=== PATIENT | male | born 1985 | race Caucasian/White ===

== ENCOUNTER 2022-07-14 16:57 | Emergency (ER) | payer OTHER, SELFPAY ==
[2022-07-14] VITALS (38 sets, daily range): BP systolic 91–158; BP diastolic 67–104; PULSE 105–135; RESP 20; TEMP 36.5–36.6; O2SAT 70–100
--- NOTE | ~2022-07-14 | XR_ITS ---
XR chest 1V portable DATE: 07/14/2022 18:05 INDICATION: Chest pain, shortness of breath TECHNIQUE: 2 portable AP views 3 COMPARISON: None FINDINGS: Normal heart size. No hilar or mediastinal enlargement. No pulmonary infiltrate or consolid ation, pleural effusion or pulmonary vascular congestion or pneumothorax. IMPRESSION: Negative Reviewed, dictated and finalized at location A. IMPRESSION: Negative
--- NOTE | 2022-07-14 17:06 | ECG_ITS ---
Measurements Intervals [place] Rate: 120 P: 75 IA: 160 QRS: 86 QRSD: 91 T: 81 QT: 369 QTc: 523 Interpretive Statements SINUS TACHYCARDIA INCOMPLETE RIGHT BUNDLE BRANCH BLOCK BORDERLINE ST-T WAVE ABNORMALITY- INF/HIGH LAT LEADS BASELINE ARTIFACT- I, AVR, AVL, V4-V6 ABNORMAL ECG NO PREVIOUS ECG AVAILABLE FOR COMPARISON Electronically Signed On 07-14-2022 20:43:32 CDT by Darryl Chandler D.O.
[2022-07-14 17:10] LABS: Glucose Point of Care 165 mg/dl (65-105)
--- NOTE | 2022-07-14 17:26 | ED.CHESTPAIN ---
HPI - Chest Pain General Chief Complaint: Chest Pain <Isael Myers MD - Last Filed: 07/14/22 21:07> Stated Complaint: chest pain/short of breath <Isael Myers MD - Last Filed: 07/14/22 21:07> Time Seen by Provider: 07/14/22 17:08 <Isael Myers MD - Last Filed: 07/14/22 21:07> History of Present Illness HPI narrative: This is a 36-year-old male with past medical history of type 1 diabetes, who presents to the emergency department complaining of chest pain for the past day. The patient states in the past day he has had cough productive of mucus without blood and pressure-like chest pain (7/10) with palpitations. He also states he has felt generally weak with episodes of passing out. He states he has been homeless for the past month and has not been able to obtain or use his insulin. <Isael Myers MD - Last Filed: 07/14/22 21:07> Related Data Home Medications: Home Medications Medication Instructions Recorded Confirmed No Home Medications 07/14/22 07/14/22 <Isael Myers MD - Last Filed: 07/14/22 21:07> Allergies/Adverse Reactions: Allergies Allergy/AdvReac Type Severity Reaction Status Date / Time cefaclor [From Ceclor] Allergy Anaphylaxis Verified 07/14/22 17:33 ciprofloxacin [From Cipro] Allergy Anaphylaxis Verified 07/14/22 17:33 <Isael Myers MD - Last Filed: 07/14/22 21:07> Review of Systems Review of Systems: CONSTITUTIONAL: Chills denies fever, or sweats. EYES: Denies visual changes, redness, or discharge. ENT: Denies rhinorrhea, congestion, sore throat, or otalgia. CARDIOVASCULAR: Chest pain, palpitations denies edema. RESPIRATORY: Cough denies dyspnea. GASTROINTESTINAL: Denies abdominal pain, nausea, vomiting, or diarrhea. GENITOURINARY: Dysuria denies hematuria. SKIN: Denies rash or itching. MUSCULOSKELETAL: Denies back pain, joint pain, or myalgia. NEUROLOGIC: Generalized weakness denies headache, numbness, dizziness PSYCHIATRIC: Denies anxiety or depression. <Isael Myers MD - Last Filed: 07/14/22 21:07> [facility], [facility] Past Medical History Medical History: Medical History (Updated 07/14/22 @ 20:18 by Isael Myers MD) Anemia Diabetes mellitus <Isael Myers MD - Last Filed: 07/14/22 21:07> Social History Social History: Social History (Updated 07/14/22 @ 17:30 by Isael Myers MD) Smoking status: Never smoker Alcohol intake: current Substance use: never <Isael Myers MD - Last Filed: 07/14/22 21:07> Exam Narrative: GENERAL: Well-developed, cachectic, appears uncomfortable HEAD: Normocephalic, atraumatic. EYES: PERRLA and EOMI. Pale conjunctiva ENT: Nares clear, no rhinorrhea or epistaxis. Mucous membranes dry. Oropharynx without tonsillar hypertrophy exudate or other lesions. NECK: Supple. No adenopathy or masses. No carotid bruits or JVD CHEST: Clear to auscultation. No respiratory distress. No wheezes rales or rhonchi HEART: Tachycardic with regular rhythm. No murmur heard. Normal peripheral pulses. ABDOMEN: Soft, nontender, nondistended, normal active bowel sounds. EXTREMITIES: Normal range of motion. No edema. SKIN: Warm, dry, no rash. NEURO: No focal deficits. Alert and oriented x3. PSYCH: Normal mood and affect. <Isael Myers MD - Last Filed: 07/14/22 21:07> Course Course Emergency Course: 18:12 - Chemistries demonstrated hyponatremia at 128. Hypokalemia at 2.3. Hypomagnesemia at 0.8 and hypocalcemia at 7.8. VBG demonstrates changes consistent with respiratory alkalosis vs contraction alkalosis. White blood cell count slightly low at 4.4. Hemoglobin reflects anemia (9.7); platelets within normal limits. Chest x-ray on my review is nonconcerning for infiltrate or pneumothorax. 19:00 - Discussed patient with hospitalist MARJ Huddleston, who prefers the patient be transferred to a facility with additional resources. 20:11 - Discussed patient with
[2022-07-14] MEDS: LACTATED RINGERS 2,000 ML 999 ML IV CONT (17:42)
[2022-07-14] MEDS: ONDANSETRON INJ 4 MG/2 ML VIAL IV PUSH (17:43)
[2022-07-14] MEDS: MORPHINE SULFATE (*CRX) 4 MG/ML INJ IV PUSH (17:44)
[2022-07-14 17:49] LABS: Basophils Absolute Auto 0.01 K/mm3 (0.00-0.10); Basophils Percent Auto 0.2 % (0.0-1.0); Eosinophils Absolute Auto 0.01 K/mm3 (0.02-0.50); Eosinophils Percent Auto 0.2 % (1.0-6.0); Hematocrit 26.4 % (40.0-54.0); Hemoglobin 9.7 g/dL (14.0-18.0); Immature Granulocyte Absolute 0.04 K/mm3 (0.00-0.00); Immature Granulocyte Percent A 0.9 % (0.0-0.0); Lymphocytes Absolute Auto 1.14 K/mm3 (1.10-4.50); Lymphocytes Percent Auto 26.1 % (18.0-42.0); Mean Corpuscular HGB Conc 36.7 g/dL (32.0-36.0); Mean Corpuscular Hemoglobin 31.8 pg (27.0-31.0); Mean Corpuscular Volume 86.6 fL (78.0-102.0); Mean Platelet Volume 9.5 fl (8.7-11.0); Monocytes Absolute Auto 0.59 K/mm3 (0.10-0.90); Monocytes Percent Auto 13.5 % (2.0-11.0); Neutrophils Absolute Auto 2.6 K/mm3 (1.7-7.2); Neutrophils Percent Auto 59.1 % (50.0-70.0); Platelet Count Result 247 K/mm3 (150-420); Red Blood Count 3.05 M/mm3 (4.70-6.10); Red Cell Distribution Width 13.7 % (11.6-14.4); White Blood Count 4.4 K/mm3 (4.8-10.8)
[2022-07-14 17:58] LABS: Device ROOM AIR; HCO3 VBG 32.2 mEq/l (24.0-30.0); PCO2 VBG 29.3 mmHg (42.0-48.0); PO2 VBG 24.2 mmHg (35.0-45.0); pH VBG 7.66 (7.33-7.43)
--- NOTE | 2022-07-14 18:00 | PC.NURSE ---
Lab reports PCO2 29.3 and Ph 7.66, erp is made aware.
[2022-07-14 18:06] LABS: Alanine Aminotransferase 21 U/L (16-63); Albumin Level 3.5 g/dL (3.4-5.0); Alkaline Phosphatase 93 U/L (46-116); Anion Gap 18 mmol/L (8-16); Aspartate Amino Transferase 48 U/L (15-37); Blood Urea Nitrogen 12 mg/dL (7-18); Calcium 7.8 mg/dL (8.5-10.1); Carbon Dioxide 32 mmol/L (21-32); Chloride 78 mmol/L (98-108); Estimated Glomerular Filt Rate > 60; Glucose 159 mg/dL (70-99); Osmolality Calculated 268 mOsm/kg (285-295); Sodium 128 mmol/L (136-145); Total Protein 6.7 g/dL (6.4-8.2)
[2022-07-14 18:07] LABS: Potassium 2.3 mmol/L (3.5-5.1)
[2022-07-14 18:08] LABS: Magnesium 0.8 mg/dL (1.8-2.4)
--- NOTE | 2022-07-14 18:08 | PC.NURSE ---
Potassium 2.3 and Magnesium 0.8. Erp made aware
[2022-07-14 18:25] LABS: Influenza A QL RT-PCR Negative (Negative); Influenza B QL RT-PCR Negative (Negative); SARS-CoV-2 RNA PCR Negative (Negative)
[2022-07-14] MEDS: MAGNESIUM SULF 2 GM/WATER 50ML 2 GM/50 ML BAG IVPB (18:27)
[2022-07-14] MEDS: POTASSIUM CHLORIDE 20 MEQ TABLET 40 MEQ PO (18:27)
[2022-07-14] MEDS: KCL 40 MEQ/0.9% SOD CHL 1,000 ML 100 ML IV CONT (18:53)
[2022-07-14] MEDS: CALCIUM GLUC 2,000 MG/NS 100ML 2,000 MG/100 ML BAG 100 MG IVPB (18:58)
--- NOTE | 2022-07-14 19:30 | PC.NURSE ---
Care resumed, report received, Pt c/o feeling very SOB even at rest, NC O2 at 3L placed on pt. Color noted very dusky and pale, IVF infusing as per order. Monitor shows ST at this time.
--- NOTE | 2022-07-14 20:22 | PC.NURSE ---
Pt resting and watching TV, he remains slightly SOB even at rest, O2 in place at 2L via NC. Spo2 is 99%. Pt informed of acceptance to [facility] and awaiting a call back c bed for transfer. VSS, IVF continue to infuse as per order.
[2022-07-14 20:47] LABS: Alanine Aminotransferase 17 U/L (16-63); Albumin Level 2.9 g/dL (3.4-5.0); Alkaline Phosphatase 77 U/L (46-116); Anion Gap 12 mmol/L (8-16); Aspartate Amino Transferase 46 U/L (15-37); Bilirubin,Total 1.1 mg/dL (0.00-1.00); Blood Urea Nitrogen 12 mg/dL (7-18); Calcium 7.8 mg/dL (8.5-10.1); Carbon Dioxide 35 mmol/L (21-32); Chloride 83 mmol/L (98-108); Estimated Glomerular Filt Rate > 60; Glucose 120 mg/dL (70-99); Osmolality Calculated 270 mOsm/kg (285-295); Sodium 130 mmol/L (136-145); Total Protein 5.9 g/dL (6.4-8.2); Troponin I 15.2 ng/L (0.00-60.4)
[2022-07-14 20:49] LABS: Potassium 2.2 mmol/L (3.5-5.1)
[2022-07-14] MEDS: KCL 20 MEQ/SW 100 ML 100 ML 50 MEQ IVPB (21:10)
--- NOTE | 2022-07-14 22:11 | PC.NURSE ---
Pt being transferred to [place] [facility] c Potassium 20meq rider continuing to infuse and NS c 40meq KCL continuing to infuse. Amt of KCL infused at time of d/c is 25 ml and amt of NS c 40meq KCL infused is 500ml. THis RN to transfer along c pt and [facility] due to unable to take potassium.
--- NOTE | 2022-07-14 23:44 | PC.NURSE ---
See transfer notes from this RN on Nurse documentation paperwork hardcopy in pt chart. Pt departed ER at 2230. This RN to transfer c pt and [facility].
== END 2022-07-14 22:30 | disposition short-term general hospital (02) ==
PROVIDERS: Emergency Provider Preventive Medicine Aerospace Medicine; PCP Nurse Practitioner
DX: R00.0 Tachycardia, unspecified (principal); R07.9 Chest pain, unspecified; E87.6 Hypokalemia; E83.42 Hypomagnesemia; E83.51 Hypocalcemia; E10.9 Type 1 diabetes mellitus without complications; Z20.822 Contact with and (suspected) exposure to COVID-19
CPT/HCPCS: 36415; 71045; 80053; 82803; 82948; 83735; 84484; 85025; 87636; 93005; 96361; 96365; 96366; 96367; 96375; 99285; A9270; J0610; J2270; J2405; J3475; J3480; J7120

== ENCOUNTER 2022-07-14 23:05 | Inpatient (IN) | payer OTHER, SELFPAY ==
--- NOTE | 2022-07-14 23:06 | PM.IMHP ---
H&P: HPI History of Present Illness Date/Time: 07/14/22 23:06 Chief Complaint: Generalized weakness Narrative: This is a 36-year-old male with past medical history significant for insulin-dependent diabetes mellitus, tobacco dependence, alcohol dependence, patient presents as a transfer from outside hospital where he presented due to generalized weakness patient has been homeless for a month and has not been taking his regular medications has been feeling sick for several days has been living out of his car. Preliminary workup was significant for several electrolyte abnormalities. Also has complaints of chills pain with swallowing poor per orally intake and denies any cough, sputum production, no nausea, no vomiting, no diarrhea has diffuse abdominal pain. Preliminary workup was significant for magnesium serum 0.8, potassium 2.5. Patient has been admitted for further evaluation management and treatment. Review of Systems Review of Systems: Generalized weakness, throat pain, odynophagia, epigastric pain Constitutional: Constitutional: Reports chills, Reports fatigue, Denies fever(s), Reports lethargy, Reports malaise, Denies night sweats, Reports weakness and Reports other (Poor per orally intake) Eyes: Eyes: Denies change in vision ENT: Denies dysphagia and Denies odynophagia Cardiovascular: Cardiovascular: Denies chest pain and Denies palpitations Respiratory: Respiratory: Denies chest congestion, Denies excessive phlegm production, Denies pain on inspiration, Denies dyspnea and Denies dyspnea on exertion Gastrointestinal: Gastrointestinal: Reports abdominal pain, Denies melena, Denies hematochezia, Denies diarrhea, Denies nausea and Denies vomiting Genitourinary: Genitourinary: Denies dysuria Musculoskeletal: Musculoskeletal: Reports muscle weakness Integumentary/Breasts: Skin/Breast: Denies rash Neurologic: Denies focal weakness and Denies Sensory deficit (Neuro) Psychiatric: Psychiatric: Reports no additional psychiatric complaints and Reports as per HPI Endocrine: Endocrine: Denies cold intolerance, Denies flushing, Denies heat intolerance, Denies polyphagia, Denies polydipsia and Denies palpitations Hematologic/Lymphatic: Hematologic/Lymphatic: Reports no additional hematologic/lymphatic complaints and Reports as per HPI Allergic/Immunologic: Allergic/Immunologic: Reports no additional allergic/immunologic complaints and Reports as per HPI PMFSH Past Medical History Medical History (Updated 07/15/22 @ 20:58 by Sivakumar Murray MD) Anemia Decreased appetite Diabetes mellitus Family History Family History (Updated 07/15/22 @ 00:09 by Perla Almonte RN) Father Bladder cancer Social History Social History (Updated 07/14/22 @ 17:30 by Isael Myers MD) Smoking packs per day: 1 Smoking cigarettes per day: 20.0 Years smoked: 20 Smoking pack-years: 20.00 Smoking status: Current every day smoker Tobacco type: cigarettes Second hand tobacco smoke exposure: No Additional smoking assessment comments: Marijuana daily Alcohol intake: current Drinks per week: 9 Substance use: never Substance use type: marijuana Lack of Transportation: No Lack of Food: Sometimes True Current Housing: I Do Not Have Housing Concerned About Future Housing: YES Difficulty Paying Gas/Electric Bills: No Difficulty Paying for Meds: No Currently Unemployed: No Education: Trade/Vocational Certificate Difficulty w/ Childcare or Family Care: No Spiritual care concerns: No Meds Home Medications and Allergies Home Medications Medication Instructions Recorded Confirmed Type ferrous sulfate 325 mg (65 mg See Rx Instructions .Route .COMPLEX 07/15/22 07/15/22 History iron) tablet folic acid 1 mg tablet 1 mg PO DAILY 07/15/22 07/15/22 History Allergies Allergy/AdvReac Type Severity Reaction Status Date / Time cefaclor [From [facility]] Allergy Anaphylaxis Verified
[2022-07-14 23:10] VITALS: BP 102/67; PULSE 51; RESP 20; TEMP 36.4; O2SAT 100; BMI 15.7
--- NOTE | 2022-07-14 23:20 | PC.NURSE ---
This patient, Pantera Schultz, was admitted to IMU Room 232-01 on 07/14/22 at 2310. Patient/family oriented to hospital policies and general routines including ID bracelet, bed and alarms, visiting hours, pain management, procedures, bathroom and other care routines, personal items, smoking policy, room service/diet, and visiting hours. Information on how to activate the Rapid Response Team has been discussed. Patient/Family are encouraged to report perceived risks to care and to ask questions if they do not understand what they are told or what they should do.
[2022-07-14] MEDS: DEXTROSE 5%/0.45% SOD CHL 1,000 ML 100 ML IV CONT (23:59)
[2022-07-15] VITALS (15 sets, daily range): BP systolic 90–109; BP diastolic 53–70; PULSE 51–117; RESP 16–20; TEMP 36.3–36.7; O2SAT 86–100
[2022-07-15] MEDS: MAGNESIUM SULF 2 GM/WATER 50ML 2 GM/50 ML BAG IVPB (00:02)
[2022-07-15 00:26] LABS: INR 1.2; Prothrombin Time 14.8 Seconds (11.1-14.7)
[2022-07-15 00:27] LABS: Partial Thromboplastin Time 27.9 SECONDS (22.3-36.8)
[2022-07-15 00:41] LABS: Anion Gap 7 mmol/L (8-16); Blood Urea Nitrogen 12 mg/dL (9-20); Calcium 7.5 mg/dL (8.4-10.2); Carbon Dioxide 36 mmol/L (22-30); Chloride 82 mmol/L (98-107); Estimated CRCL calculation 139 ml/min; Estimated Glomerular Filt Rate > 60; Glucose 100 mg/dL (65-110); Magnesium 1.5 mg/dL (1.6-2.3); Phosphorus 3.2 mg/dL (2.5-4.5); Potassium 2.9 mmol/L (3.4-5.0); Sodium 125 mmol/L (137-145)
[2022-07-15 00:59] LABS: Hemoglobin A1C 8.1 % (<5.7)
[2022-07-15] MEDS: chlordiazePOXIDE (*CRX) 25 MG CAPSULE 50 MG PO ×4 (01:13→17:43)
[2022-07-15] MEDS: BELLADONNA ALK/PHENOB ELIX 10 ML, MAG HYDROX/ALUMINUM HYD/SIMETH 30 ML, LIDOCAINE HCL 2... PO (01:14)
[2022-07-15] MEDS: POTASSIUM CHLORIDE INJ 40 MEQ in SODIUM CHLORIDE 0.9% IV 500 ML 130 MEQ IVPB (01:48)
[2022-07-15 06:39] LABS: Basophils Percent Auto 0.3 % (0.2-1.2); Eosinophils Percent Auto 0.9 % (0-4.4); Hematocrit 23.7 % (42.0-52.0); Hemoglobin 8.4 g/dL (14.0-18.0); Immature Granulocyte Percent A 0.9 % (0-0.5); Lymphocytes Percent Auto 27.2 % (18.3-44.2); Mean Corpuscular HGB Conc 35.4 g/dl (32-36); Mean Corpuscular Hemoglobin 31.7 pg (26-34); Mean Corpuscular Volume 89.4 fl (80-100); Mean Platelet Volume 9.2 fl (7.4-10.4); Monocytes Percent Auto 10.5 % (2.6-8.5); Neutrophils Percent Auto 60.2 % (45.5-73.1); Platelet Count Result 193 k/mm3 (150-375); Red Blood Count 2.65 M/mm3 (4.6-6.20); Red Cell Distribution Width 14.3 % (11.5-14.5); White Blood Count 3.3 K/mm3 (4.5-10.0)
[2022-07-15 06:40] LABS: Immature Granulocyte Absolute 0.03 K/mm3 (0.00-0.031); Lymphocytes Absolute Auto 0.91 K/mm3 (0.9-3.2); Monocytes Absolute Auto 0.4 K/mm3 (0.1-0.6)
[2022-07-15 06:49] LABS: Anion Gap 7 mmol/L (8-16); Blood Urea Nitrogen 13 mg/dL (9-20); Calcium 7.1 mg/dL (8.4-10.2); Carbon Dioxide 36 mmol/L (22-30); Chloride 88 mmol/L (98-107); Estimated CRCL calculation 139 ml/min; Estimated Glomerular Filt Rate > 60; Glucose 128 mg/dL (65-110); Magnesium 2.3 mg/dL (1.6-2.3); Potassium 3.2 mmol/L (3.4-5.0); Sodium 131 mmol/L (137-145)
[2022-07-15] MEDS: FAMOTIDINE 20 MG/2 ML VIAL IV PUSH ×2 (10:16→20:54)
[2022-07-15] MEDS: FERROUS SULFATE 324 MG TABLET BY MOUTH (10:16)
[2022-07-15] MEDS: FOLIC ACID 1 MG TABLET PO (10:16)
[2022-07-15] MEDS: THIAMINE HCL 200 MG/2 ML VIAL 100 MG IV PUSH (10:16)
[2022-07-15] MEDS: POTASSIUM CHLORIDE 20 MEQ PACKET (FOR LIQUID) 40 MEQ PO (10:17)
[2022-07-15] MEDS: ENOXAPARIN 40 MG/0.4 ML SYRINGE SUB-Q (10:17)
[2022-07-15 12:44] LABS: Glucose Point of Care 220 mg/dl (65-105)
--- NOTE | 2022-07-15 13:13 | PM.IMPN ---
Progress Note: A&P Assessment and Plan (1) Alcohol dependence: Code(s): F10.20 - Alcohol dependence, uncomplicated Status: Acute Assessment and Plan: Will monitor for withdrawals. Continue Librium as needed. Monitor electrolytes, continue IV fluids. (2) Tobacco dependence: Code(s): F17.200 - Nicotine dependence, unspecified, uncomplicated Status: Acute (3) Insulin dependent diabetes mellitus: Status: Acute Assessment and Plan: Monitor blood sugars (4) Hypomagnesemia: Code(s): E83.42 - Hypomagnesemia Status: Acute Assessment and Plan: Replace as needed (5) Hypokalemia: Code(s): E87.6 - Hypokalemia Status: Acute Assessment and Plan: Replace as needed (6) Protein-calorie malnutrition, moderate: Code(s): E44.0 - Moderate protein-calorie malnutrition Status: Acute Assessment and Plan: Encourage p.o. intake. (7) Epigastric abdominal pain: Code(s): R10.13 - Epigastric pain Status: Acute Subjective Date/time seen: 07/15/22 13:13 No complaints Exam Narrative: Patient is laying in bed, ill appearing, cachectic Const: General: cooperative, comfortable, no acute distress, well developed, alert, awake, ill appearing, cachectic and malnourished Nutritional Appearance: cachectic and malnourished Orientation/consciousness: patient oriented x3 HENMT: Head: normal to inspection, normocephalic and atraumatic Ears: hearing grossly normal bilaterally Face/Nose/Sinus: normal facial exam Face and sinus: normal facial exam Other: Poor dentition Eyes: General: appearance normal, both eyes and all related structures Pupils: Equal, round and reactive pupils present EOM: EOMs intact bilaterally Neck: Neck: full ROM, no lymphadenopathy and no JVD Thyroid: thyroid normal Lymphatic: no lymphadenopathy noted Resp: Effort & Inspection: normal respiratory effort and able to speak in complete sentences Auscultation: clear to auscultation bilaterally Cardio: Jugular venous distension: no JVD Rate: regular rate Rhythm: regular rhythm Heart sounds: S1 normal heart sound present and S2 normal heart sound present GI: Inspection: scaphoid : General: Yes deferred Skin: Rashes: no rashes Wounds: no wounds Neuro: General: patient oriented x3, CN's II-XI intact bilaterally and Unable to assess gait Cranial nerves: Yes CN's II-XII intact bilaterally and Yes Equal, round and reactive pupils present Cognition (Neuro): normal cognition Speech: normal speech Gait exam (Neuro): Unable to assess gait Motor exam (neuro): 5/5 motor strength present throughout Extrem: General: normal to inspection, full ROM, no joint enlargement and no pedal edema Objective Data Vital Signs Vital Signs: Vital Signs - 24 hr 07/14/22 23:10 07/15/22 00:00 07/15/22 00:00 Temperature 97.5 F L Pulse Rate 51 L 51 L 99 Respiratory Rate 20 Blood Pressure 102/67 Pulse Oximetry 100 Oxygen Delivery Oxygen Flow Rate 07/15/22 00:00 07/15/22 02:00 07/15/22 04:00 Temperature 97.9 F Pulse Rate 101 H 100 Respiratory Rate 20 Blood Pressure 105/65 Pulse Oximetry 100 100 Oxygen Delivery Nasal Cannula Oxygen Flow Rate 2 07/15/22 04:00 07/15/22 04:00 07/15/22 06:00 Temperature Pulse Rate 97 101 H Respiratory Rate Blood Pressure Pulse Oximetry 100 Oxygen Delivery Nasal Cannula Oxygen Flow Rate 2 07/15/22 08:00 07/15/22 09:12 07/15/22 09:13 Temperature 97.9 F Pulse Rate 99 Respiratory Rate 20 Blood Pressure 109/70 Pulse Oximetry 99 86 L 90 Oxygen Delivery Room Air Nasal Cannula Oxygen Flow Rate 2 07/15/22 08:00 07/15/22 08:00 07/15/22 12:00 Temperature 97.4 F L Pulse Rate 99 116 H Respiratory Rate 20 16 Blood Pressure 109/70 93/65 L Pulse Oximetry 90 100 Oxygen Delivery Nasal Cannula Oxygen Flow Rate 2 Intake/Output Intake/Output: Intake & Output
[2022-07-15] MEDS: LACTATED RINGERS 1,000 ML 75 ML IV CONT (17:43)
[2022-07-15] MEDS: ACETAMINOPHEN 325 MG TABLET 650 MG PO (18:52)
[2022-07-15] MEDS: MAG HYDROX/AL HYDROX/SIMETH 30 ML UDC PO (18:52)
--- NOTE | 2022-07-15 18:55 | ECG_ITS ---
Measurements Intervals [place] Rate: 107 P: 54 DC: 202 QRS: 70 QRSD: 81 T: 68 QT: 352 QTc: 472 Interpretive Statements SINUS TACHYCARDIA BASELINE ARTIFACT- I, II, AVR, V1 ABNORMAL ECG COMPARED TO ECG 07/14/2022 17:13:52 NO SIGNIFICANT CHANGES Electronically Signed On 07-15-2022 20:41:35 CDT by Darryl Chandler D.O.
--- NOTE | 2022-07-15 19:39 | PC.NURSE ---
Patient complaining of chest pain/epigastric pain 6/10, with increased discomfort with coughing. EKG obtained, troponin ordered x3. Patient also given prn Mylanta. Patient advised discomfort improving. Will continue to monitor closely.
[2022-07-15 19:40] LABS: Glucose Point of Care 228 mg/dl (65-105)
[2022-07-15 20:19] LABS: Troponin I < 0.012 ng/mL (0.000-0.034)
--- NOTE | 2022-07-15 20:53 | WPDGICN ---
Assessment and Plan Assessment and plan (1) Protein-calorie malnutrition, moderate: Code(s): E44.0 - Moderate protein-calorie malnutrition Status: Acute Assessment and Plan: lack of resources, homeless and hardly eating last 3 weeks he is already feeling better after having access to food and medical care he also could not afford any of his home meds (2) Hypokalemia: Code(s): E87.6 - Hypokalemia Status: Acute Assessment and Plan: very low and repleted now also low Mag (3) Hypomagnesemia: Code(s): E83.42 - Hypomagnesemia Status: Acute (4) Insulin dependent diabetes mellitus: Status: Acute Assessment and Plan: back on treatment again (5) Epigastric abdominal pain: Code(s): R10.13 - Epigastric pain Status: Acute Assessment and Plan: chest/epigastric discomfort already feeling better and eating- he is even asking for extra snacks continue to monitor (6) Decreased appetite: Code(s): R63.0 - Anorexia Status: Acute GI Consult Note Consult date/time: 07/15/22 20:53 Reason for consult: lack appetite, chest pain HPI: Pantera Schultz is a 36 year old male with history insulin-dependent diabetes mellitus, tobacco dependence, alcohol dependence (he says that had pancreatitis about 2-3 years ago that required endoscopic evaluation with stent placement ? ERCP), now only drinking socially. He went to [place] ER after generalized weakness since he has been homeless for a month, he has not been hardly eating anything and loss weight due to depression and lack of resources. Finally had chest discomfort with heart flutter and transferred here after found to have significant abnormal lytes (low K, low Mg, etc). Since admission and after treated medically with correction of lytes, he has been eating more and slowly getting better. Review of Systems Constitutional: Constitutional: Reports anorexia and Reports weight loss Eyes: Eyes: Denies blurry vision ENT: Reports Normal hearing present Cardiovascular: Cardiovascular: Reports chest pain Respiratory: Respiratory: Denies cough Gastrointestinal: Gastrointestinal: Denies vomiting Genitourinary: Genitourinary: Denies hematuria Musculoskeletal: Musculoskeletal: Denies arthralgias Integumentary/Breasts: Skin/Breast: Denies rash Neurologic: Denies Abnormal speech present Psychiatric: Psychiatric: Denies confusion [facility] Past Medical History Medical History (Updated 07/15/22 @ 20:58 by Sivakumar Murray MD) Anemia Decreased appetite Diabetes mellitus Family History Family History (Updated 07/15/22 @ 00:09 by Perla Almonte RN) Father Bladder cancer Social History Social History (Updated 07/14/22 @ 17:30 by Isael Myers MD) Smoking packs per day: 1 Smoking cigarettes per day: 20.0 Years smoked: 20 Smoking pack-years: 20.00 Smoking status: Current every day smoker Tobacco type: cigarettes Second hand tobacco smoke exposure: No Additional smoking assessment comments: Marijuana daily Alcohol intake: current Drinks per week: 9 Substance use: never Substance use type: marijuana Lack of Transportation: No Lack of Food: Sometimes True Current Housing: I Do Not Have Housing Concerned About Future Housing: YES Difficulty Paying Gas/Electric Bills: No Difficulty Paying for Meds: No Currently Unemployed: No Education: Trade/Vocational Certificate Difficulty w/ Childcare or Family Care: No Spiritual care concerns: No Meds Home Medications and Allergies Home Medications Medication Instructions Recorded Confirmed Type ferrous sulfate 325 mg (65 mg See Rx Instructions .Route .COMPLEX 07/15/22 07/15/22 History iron) tablet folic acid 1 mg tablet 1 mg PO DAILY 07/15/22 07/15/22 History Allergies Allergy/AdvReac Type Severity Reaction Status Date / Time cefaclor [From Ceclor] Allergy Anaphylaxis
[2022-07-15] MEDS: LORazepam INJ (*CRX) 2 MG/ML VIAL IV PUSH (21:06)
[2022-07-16] VITALS (10 sets, daily range): BP systolic 92–103; BP diastolic 63–76; PULSE 98–123; RESP 16–18; TEMP 36.3–36.8; O2SAT 98–100
[2022-07-16] LABS: Troponin I < 0.012 ng/mL (0.000-0.034)
[2022-07-16 02:52] LABS: Troponin I < 0.012 ng/mL (0.000-0.034)
[2022-07-16 05:14] LABS: Anion Gap 4 mmol/L (8-16); Blood Urea Nitrogen 8 mg/dL (9-20); Calcium 7.3 mg/dL (8.4-10.2); Carbon Dioxide 33 mmol/L (22-30); Chloride 95 mmol/L (98-107); Estimated CRCL calculation 169 ml/min; Estimated Glomerular Filt Rate > 60; Glucose 205 mg/dL (65-110); Potassium 3.1 mmol/L (3.4-5.0); Sodium 132 mmol/L (137-145)
[2022-07-16] MEDS: ACETAMINOPHEN 325 MG TABLET 650 MG PO (05:23)
[2022-07-16] MEDS: chlordiazePOXIDE (*CRX) 25 MG CAPSULE 50 MG PO ×4 (05:24→21:49)
[2022-07-16] MEDS: ONDANSETRON INJ 4 MG/2 ML VIAL IV PUSH (05:29)
[2022-07-16 08:15] LABS: Glucose Point of Care 210 mg/dl (65-105)
[2022-07-16 09:21] LABS: Basophils Percent Auto 0.4 % (0.2-1.2); Eosinophils Absolute Auto 0.1 K/mm3 (0-0.3); Eosinophils Percent Auto 1.4 % (0-4.4); Hematocrit 23.7 % (42.0-52.0); Hemoglobin 7.9 g/dL (14.0-18.0); Immature Granulocyte Absolute 0.03 K/mm3 (0.00-0.031); Immature Granulocyte Percent A 0.6 % (0-0.5); Lymphocytes Absolute Auto 1.43 K/mm3 (0.9-3.2); Lymphocytes Percent Auto 29.4 % (18.3-44.2); Mean Corpuscular HGB Conc 33.3 g/dl (32-36); Mean Corpuscular Hemoglobin 31.5 pg (26-34); Mean Corpuscular Volume 94.4 fl (80-100); Mean Platelet Volume 9.8 fl (7.4-10.4); Monocytes Absolute Auto 0.6 K/mm3 (0.1-0.6); Monocytes Percent Auto 11.5 % (2.6-8.5); Neutrophils Absolute Auto 2.8 K/mm3 (1.3-6.7); Neutrophils Percent Auto 56.7 % (45.5-73.1); Nucleated Red Blood Cells Perc 0.4 % (0.0-0.2); Platelet Count Result 243 k/mm3 (150-375); Red Blood Count 2.51 M/mm3 (4.6-6.20); Red Cell Distribution Width 14.7 % (11.5-14.5); White Blood Count 4.9 K/mm3 (4.5-10.0)
[2022-07-16] MEDS: MAG HYDROX/AL HYDROX/SIMETH 30 ML UDC PO (09:39)
[2022-07-16] MEDS: THIAMINE HCL 200 MG/2 ML VIAL 100 MG IV PUSH (09:39)
[2022-07-16] MEDS: FOLIC ACID 1 MG TABLET PO (09:39)
[2022-07-16] MEDS: ENOXAPARIN 40 MG/0.4 ML SYRINGE SUB-Q (09:39)
[2022-07-16] MEDS: FAMOTIDINE 20 MG/2 ML VIAL IV PUSH ×2 (09:39→21:49)
[2022-07-16] MEDS: POTASSIUM CHLORIDE 20 MEQ PACKET (FOR LIQUID) 40 MEQ PO (11:27)
[2022-07-16 12:11] LABS: Glucose Point of Care 195 mg/dl (65-105)
--- NOTE | 2022-07-16 12:11 | WPDGIPROGNO ---
Progress Note: A&P Assessment and Plan (1) Protein-calorie malnutrition, moderate: Code(s): E44.0 - Moderate protein-calorie malnutrition Status: Acute Assessment and Plan: he is eating and overall feeling better (2) Hypomagnesemia: Code(s): E83.42 - Hypomagnesemia Status: Acute (3) Hypokalemia: Code(s): E87.6 - Hypokalemia Status: Acute Assessment and Plan: treated risk of refeeding syndrome- monitor (4) Epigastric abdominal pain: Code(s): R10.13 - Epigastric pain Status: Acute Assessment and Plan: had egd 2-3 years ago consider to repeat but overall better with medical management (5) Decreased appetite: Code(s): R63.0 - Anorexia Status: Acute (6) Weight loss: Code(s): R63.4 - Abnormal weight loss Status: Acute Assessment and Plan: he was starving for almost a month Subjective Date/time seen: 07/16/22 12:11 Interval history: he is eating all his meals, overall better, still some chest discomfort. No gib Review of Systems Review of Systems: All systems reviewed & are unremarkable except as noted in HPI and below Exam Const: General: comfortable and no acute distress Other: thin HENMT: Face/Nose/Sinus: Normal nares present Eyes: General: appearance normal, both eyes and all related structures Neck: Neck: no JVD Resp: Auscultation: clear to auscultation bilaterally Cardio: Rate: regular rate Rhythm: regular rhythm GI: Inspection: non-distended GI Palp: Yes Soft to palpation, No Tenderness to palpation present (GI) and No Guarding due to palpation present (GI) Auscultation: normal bowel sounds Skin: General skin exam: normal color Neuro: Speech: normal speech Motor exam (neuro): 5/5 motor strength present throughout Extrem: General: normal to inspection Other: decrease muscle mass Psych: Mental Status: mental status grossly normal Objective Data Vital Signs Vital Signs: Vital Signs - 24 hr 07/15/22 14:00 07/15/22 16:00 07/15/22 16:00 Temperature Pulse Rate 105 H 103 H Respiratory Rate Blood Pressure Pulse Oximetry Oxygen Delivery Room Air 07/15/22 16:00 07/15/22 16:00 07/15/22 18:00 Temperature 97.9 F Pulse Rate 111 H 109 H Respiratory Rate 16 Blood Pressure 95/63 L 95/63 L Pulse Oximetry 100 Oxygen Delivery 07/15/22 20:00 07/15/22 23:43 07/16/22 04:00 Temperature 97.6 F 98.1 F 97.3 F L Pulse Rate 109 H 105 H 107 H Respiratory Rate 18 20 18 Blood Pressure 90/57 L 101/53 L 100/66 Pulse Oximetry 100 99 100 Oxygen Delivery 07/15/22 20:00 07/15/22 22:00 07/16/22 00:00 Temperature Pulse Rate 110 H 103 H 102 H Respiratory Rate Blood Pressure Pulse Oximetry Oxygen Delivery 07/16/22 02:00 07/16/22 04:00 07/15/22 20:00 Temperature Pulse Rate 101 H 98 Respiratory Rate Blood Pressure Pulse Oximetry Oxygen Delivery Room Air 07/16/22 00:00 07/16/22 04:00 07/16/22 05:57 Temperature Pulse Rate 99 Respiratory Rate Blood Pressure Pulse Oximetry Oxygen Delivery Room Air Room Air 07/16/22 08:00 07/16/22 08:00 07/16/22 08:00 Temperature 97.8 F Pulse Rate 101 H Respiratory Rate 16 Blood Pressure 92/63 L 92/63 L Pulse Oximetry 98 Oxygen Delivery Room Air 07/16/22 08:00 07/16/22 10:00 Temperature Pulse Rate 103 H 103 H Respiratory Rate Blood Pressure Pulse Oximetry Oxygen Delivery Intake/Output Intake/Output: Intake & Output 07/13/22 07/14/22 07/15/22 07/16/22 23:59 23:59 23:59 23:59 Intake Total 1870 1490 Balance 1870 1490 Meds/Results Medications: Active Medications Generic Name Dose Route Start Last Admin Trade Name Freq PRN Reason Stop Dose Admin Acetaminophen 650 mg 07/14/22 23:06 07/16/22 05:23 Acetaminophen 325 Mg Tablet PO 650 mg Q4H PRN Administration Mild Pain (1-3) or Fever Al Hydrox
--- NOTE | 2022-07-16 12:54 | PM.IMPN ---
Progress Note: A&P Assessment and Plan (1) Insulin dependent diabetes mellitus: Status: Acute Assessment and Plan: Patient has not been able to afford his medications and have been living out of his car Has not been able to get any meals as well Will liberalize diet at this point Insulin sliding scale as needed (2) Alcohol dependence: Code(s): F10.20 - Alcohol dependence, uncomplicated Status: Acute Assessment and Plan: CIWA as needed (3) Tobacco dependence: Code(s): F17.200 - Nicotine dependence, unspecified, uncomplicated Status: Acute Assessment and Plan: Nicotine patch as needed patient requested (4) Hypomagnesemia: Code(s): E83.42 - Hypomagnesemia Status: Acute Assessment and Plan: Replace as needed likely secondary to poor per orally intake (5) Hypokalemia: Code(s): E87.6 - Hypokalemia Status: Acute Assessment and Plan: Replace as needed likely secondary to poor per orally intake (6) Protein-calorie malnutrition, moderate: Code(s): E44.0 - Moderate protein-calorie malnutrition Status: Acute Assessment and Plan: Liberalize diet Dietitian consult (7) Epigastric abdominal pain: Code(s): R10.13 - Epigastric pain Status: Acute Assessment and Plan: Likely secondary to poor per orally intake Consulted GI Pepcid as needed Subjective Date/time seen: 07/16/22 12:54 No new complaints Exam Narrative: Patient is laying in bed, ill appearing, cachectic Const: General: cooperative, comfortable, no acute distress, well developed, alert, awake, ill appearing, cachectic and malnourished Nutritional Appearance: cachectic and malnourished Orientation/consciousness: patient oriented x3 HENMT: Head: normal to inspection, normocephalic, atraumatic and other (Bitemporal muscle wasting) Ears: hearing grossly normal bilaterally Face/Nose/Sinus: normal facial exam Face and sinus: normal facial exam Other: Poor dentition Eyes: General: appearance normal, both eyes and all related structures Pupils: Equal, round and reactive pupils present EOM: EOMs intact bilaterally Neck: Neck: full ROM, no lymphadenopathy and no JVD Thyroid: thyroid normal Lymphatic: no lymphadenopathy noted Resp: Effort & Inspection: normal respiratory effort and able to speak in complete sentences Auscultation: clear to auscultation bilaterally Cardio: Jugular venous distension: no JVD Rate: regular rate Rhythm: regular rhythm Heart sounds: S1 normal heart sound present and S2 normal heart sound present GI: Inspection: scaphoid : General: Yes deferred Skin: Rashes: no rashes Wounds: no wounds Neuro: General: patient oriented x3, CN's II-XI intact bilaterally and Unable to assess gait Cranial nerves: Yes CN's II-XII intact bilaterally and Yes Equal, round and reactive pupils present Cognition (Neuro): normal cognition Speech: normal speech Gait exam (Neuro): Normal gait present and Unable to assess gait Motor exam (neuro): 5/5 motor strength present throughout Sensory Exam: No Sensory deficit (Neuro) Extrem: General: normal to inspection, full ROM, no joint enlargement and no pedal edema Objective Data Vital Signs Vital Signs: Vital Signs - 24 hr 07/15/22 14:00 07/15/22 16:00 07/15/22 16:00 Temperature Pulse Rate 105 H 103 H Respiratory Rate Blood Pressure Pulse Oximetry Oxygen Delivery Room Air 07/15/22 16:00 07/15/22 16:00 07/15/22 18:00 Temperature 97.9 F Pulse Rate 111 H 109 H Respiratory Rate 16 Blood Pressure 95/63 L 95/63 L Pulse Oximetry 100 Oxygen Delivery 07/15/22 20:00 07/15/22 23:43 07/16/22 04:00 Temperature 97.6 F 98.1 F 97.3 F L Pulse Rate 109 H 105 H 107 H Respiratory Rate 18 20 18 Blood Pressure 90/57 L 101/53 L 100/66 Pulse Oximetry 100 99 100 Oxygen Delivery 07/15/22 20:00 07/15/22 22:00 07/16/22 00:00 Temperature Pulse Rat
[2022-07-16] MEDS: POTASSIUM CHLORIDE 20 MEQ TABLET PO (16:32)
[2022-07-16 17:17] LABS: Glucose Point of Care 229 mg/dl (65-105)
[2022-07-16] MEDS: INSULIN ASPART (*BKC) 100 UNITS/ML SUB-Q (17:50)
[2022-07-16 18:24] LABS: Toxigenic C. Diff POSITIVE (NEGATIVE)
[2022-07-16 19:47] LABS: Anion Gap 9 mmol/L (8-16); Blood Urea Nitrogen 7 mg/dL (9-20); Calcium 8.2 mg/dL (8.4-10.2); Carbon Dioxide 29 mmol/L (22-30); Chloride 101 mmol/L (98-107); Estimated CRCL calculation 139 ml/min; Estimated Glomerular Filt Rate > 60; Glucose 181 mg/dL (65-110); Potassium 3.3 mmol/L (3.4-5.0); Sodium 139 mmol/L (137-145)
[2022-07-16 20:38] LABS: Glucose Point of Care 199 mg/dl (65-105)
[2022-07-16] MEDS: VANCOMYCIN ORAL 125 MG/2.5 ML SYRUP PO (21:49)
[2022-07-17] VITALS (9 sets, daily range): BP systolic 99–107; BP diastolic 68–81; PULSE 78–112; RESP 16–20; TEMP 36.3–37; O2SAT 92–100; BMI 16.0
--- NOTE | 2022-07-17 02:38 | PC.NURSE ---
This patient, Pantera Schultz, was transferred to [facility] on 07/17/22 at 0238. Personal belongings sent with patient. Report given to Adrianna TRIPATHI. Appropriate documentation sent with patient.
--- NOTE | 2022-07-17 05:03 | PC.NURSE ---
Pt received from IMU via wheelchair at 0245. Pt ambulated 3 feet to bed with 2 assists holding onto pt upper arm Pt unsteady. Dizzy with ambulation Alert, slow to respond, explained plan of care. Pt tired and has difficulty following conversation, direction. Tele - SR-ST . Pt disheveled unkempt, states lost job due to diabetic issues, too weak to get another job, poor po intake ,then mother kicked him out of the house. Living in car. Clothes in bags with stool on them. Stool noted under long fingernails. Pt diabetic, asked for regular pop , given diet. bed alarm applied.
[2022-07-17] MEDS: chlordiazePOXIDE (*CRX) 25 MG CAPSULE 50 MG PO ×3 (05:35→18:27)
[2022-07-17] MEDS: VANCOMYCIN ORAL 125 MG/2.5 ML SYRUP PO ×3 (05:35→18:26)
--- NOTE | 2022-07-17 08:07 | PC.NURSE ---
Pt impulsive, multiple attempts to get out of bed and did succeed couple times. Unsteady Pt stated that he almost fell in room Pt given reminders on safety, call light, bed alarm. Pt forgetful. QUALITY MANAGEMENT COORDINATOR put pt on BSC and left the room. This nurse found pt walking unsteadily in [place]. Report given to next shift
[2022-07-17 09:44] LABS: Glucose Point of Care 240 mg/dl (65-105)
--- NOTE | 2022-07-17 09:45 | PCOTNOTE ---
Per Dr. Nevarez bedrest orders can be removed in order for Therapy evaluations to be completed. Will remove bedrest.
[2022-07-17] MEDS: ENOXAPARIN 40 MG/0.4 ML SYRINGE SUB-Q (09:48)
[2022-07-17] MEDS: FAMOTIDINE 20 MG/2 ML VIAL IV PUSH (09:48)
[2022-07-17] MEDS: FERROUS SULFATE 324 MG TABLET BY MOUTH (09:48)
[2022-07-17] MEDS: FOLIC ACID 1 MG TABLET PO (09:48)
[2022-07-17] MEDS: THIAMINE HCL 200 MG/2 ML VIAL 100 MG IV PUSH (09:48)
[2022-07-17] MEDS: INSULIN ASPART (*BKC) 100 UNITS/ML SUB-Q ×3 (10:16→18:21)
--- NOTE | 2022-07-17 12:07 | PM.DS ---
DS: Admitting Diagnosis Discharge Date July 17, 2022 Admitting Diagnosis Weakness DS: Discharge Diagnosis Discharge Diagnosis (1) Insulin dependent diabetes mellitus: Status: Acute Assessment and Plan: Patient has not been able to afford his medications and have been living out of his car Has not been able to get any meals as well Will liberalize diet at this point Insulin sliding scale as needed (2) Alcohol dependence: Code(s): F10.20 - Alcohol dependence, uncomplicated Status: Acute Assessment and Plan: CIWA as needed (3) Tobacco dependence: Code(s): F17.200 - Nicotine dependence, unspecified, uncomplicated Status: Acute Assessment and Plan: Nicotine patch as needed patient requested (4) Hypomagnesemia: Code(s): E83.42 - Hypomagnesemia Status: Acute Assessment and Plan: Replace as needed likely secondary to poor per orally intake (5) Hypokalemia: Code(s): E87.6 - Hypokalemia Status: Acute Assessment and Plan: Replace as needed likely secondary to poor per orally intake (6) Protein-calorie malnutrition, moderate: Code(s): E44.0 - Moderate protein-calorie malnutrition Status: Acute Assessment and Plan: Liberalize diet Dietitian consult (7) Epigastric abdominal pain: Code(s): R10.13 - Epigastric pain Status: Acute Assessment and Plan: Likely secondary to poor per orally intake Consulted GI Pepcid as needed DS: Summary Hospital Course Hospital Course: 36-year-old male who is homeless and lives in his car comes to the ER in hospital for weakness. He has also has history of insulin-dependent diabetes. He reports noncompliance to medications. His blood sugars mildly elevated came in. He reports to me that he does not access to food and does not take his medications. Patient was stabilized in the hospital given IV fluids electrolytes and he is now feeling somewhat better. He can be discharged. Information support has been given to the patient as well. Time Spent with Patient Time attestation: Total time spent providing and/or coordinating discharge services: Exam Narrative: Patient is laying in bed, ill appearing, cachectic Const: General: cooperative, comfortable, no acute distress, well developed, alert, awake, ill appearing, cachectic and malnourished Nutritional Appearance: cachectic and malnourished Orientation/consciousness: patient oriented x3 HENMT: Head: normal to inspection, normocephalic, atraumatic and other (Bitemporal muscle wasting) Ears: hearing grossly normal bilaterally Face/Nose/Sinus: normal facial exam Face and sinus: normal facial exam Other: Poor dentition Eyes: General: appearance normal, both eyes and all related structures Pupils: Equal, round and reactive pupils present EOM: EOMs intact bilaterally Neck: Neck: full ROM, no lymphadenopathy and no JVD Thyroid: thyroid normal Lymphatic: no lymphadenopathy noted Resp: Effort & Inspection: normal respiratory effort and able to speak in complete sentences Auscultation: clear to auscultation bilaterally Cardio: Jugular venous distension: no JVD Rate: regular rate Rhythm: regular rhythm Heart sounds: S1 normal heart sound present and S2 normal heart sound present GI: Inspection: scaphoid : General: Yes deferred Skin: Rashes: no rashes Wounds: no wounds Neuro: General: patient oriented x3, CN's II-XI intact bilaterally and Unable to assess gait Cranial nerves: Yes CN's II-XII intact bilaterally and Yes Equal, round and reactive pupils present Cognition (Neuro): normal cognition Speech: normal speech Gait exam (Neuro): Normal gait present and Unable to assess gait Motor exam (neuro): 5/5 motor strength present throughout Sensory Exam: No Sensory deficit (Neuro) Extrem: General: normal to inspection, full ROM, no joint enlargement and no pedal edema DS: Data Data Completed and Pending Eva
[2022-07-17 12:39] LABS: Glucose Point of Care 285 mg/dl (65-105)
--- NOTE | 2022-07-17 13:52 | WPDGIPROGNO ---
Progress Note: A&P Assessment and Plan (1) Protein-calorie malnutrition, moderate: Code(s): E44.0 - Moderate protein-calorie malnutrition Status: Acute Assessment and Plan: he is eating all his meals improving lytes better (2) C. difficile diarrhea: Code(s): A04.72 - Enterocolitis due to Clostridium difficile, not specified as recurrent Status: Acute Assessment and Plan: new diagnosis and started on vancomycin (3) Hypokalemia: Code(s): E87.6 - Hypokalemia Status: Acute Assessment and Plan: treated risk of refeeding syndrome- monitor (4) Epigastric abdominal pain: Code(s): R10.13 - Epigastric pain Status: Acute Assessment and Plan: had egd 2-3 years ago consider to repeat but overall better with medical management I will prefer as outpatient and also can offer colonoscopy (right now with C diff- will defer), weight loss and anemia most likely if nutritional related (5) Weight loss: Code(s): R63.4 - Abnormal weight loss Status: Acute Assessment and Plan: he was starving for almost a month Subjective Date/time seen: 07/17/22 13:52 Interval history: c/o diarrhea and diagnosed with C diff. He is eating 100% meals with extra snacks. Still some chest discomfort Review of Systems Review of Systems: All systems reviewed & are unremarkable except as noted in HPI and below Exam Const: General: comfortable and no acute distress Other: thin HENMT: Face/Nose/Sinus: Normal nares present Eyes: General: appearance normal, both eyes and all related structures Neck: Neck: no JVD Resp: Auscultation: clear to auscultation bilaterally Cardio: Rate: regular rate Rhythm: regular rhythm GI: Inspection: non-distended GI Palp: Yes Soft to palpation, No Tenderness to palpation present (GI) and No Guarding due to palpation present (GI) Auscultation: normal bowel sounds Skin: General skin exam: normal color Neuro: Speech: normal speech Motor exam (neuro): 5/5 motor strength present throughout Extrem: General: normal to inspection Other: decreased muscle mass Psych: Mental Status: mental status grossly normal Objective Data Vital Signs Vital Signs: Vital Signs - 24 hr 07/16/22 16:00 07/16/22 16:00 07/16/22 16:00 Temperature 97.4 F L Pulse Rate 106 H 107 H Respiratory Rate 16 Blood Pressure 103/73 103/73 Pulse Oximetry 100 Oxygen Delivery 07/16/22 20:53 07/16/22 20:00 07/16/22 20:00 Temperature 98.2 F Pulse Rate 118 H 123 H Respiratory Rate 18 Blood Pressure 102/76 Pulse Oximetry 100 100 Oxygen Delivery Room Air 07/17/22 00:00 07/17/22 01:59 07/17/22 02:56 Temperature 97.3 F L Pulse Rate 112 H 99 102 H Respiratory Rate 18 Blood Pressure 107/78 Pulse Oximetry 92 Oxygen Delivery 07/17/22 04:00 07/17/22 05:11 07/17/22 10:44 Temperature 97.6 F Pulse Rate 99 93 Respiratory Rate 18 Blood Pressure 101/81 Pulse Oximetry 92 Oxygen Delivery Room Air Intake/Output Intake/Output: Intake & Output 07/14/22 07/15/22 07/16/22 07/17/22 23:59 23:59 23:59 23:59 Intake Total 1870 2310 460 Balance 1870 2310 460 Meds/Results Medications: Active Medications Generic Name Dose Route Start Last Admin Trade Name Freq PRN Reason Stop Dose Admin Acetaminophen 650 mg 07/14/22 23:06 07/16/22 05:23 Acetaminophen 325 Mg Tablet PO 650 mg Q4H PRN Administration Mild Pain (1-3) or Fever Al Hydrox/Mg Hydrox/Simethicone 30 ml 07/14/22 23:06 07/16/22 09:39 Mag Hydrox/Al Hydrox/Simeth 30 Ml Udc PO 30 ml QID PRN Administration Dyspepsia Chlordiazepoxide HCl 50 mg 07/15/22 00:00 07/17/22 13:34 Chlordiazepoxide (*Crx) 25 Mg Capsule PO 50 mg Q6HR LORENA Administration Dextrose 12.5 gm 07/16/22 11:16 Dextrose 50% 25 Gm/50 Ml Syringe IV PUSH PRN PRN Hypoglycemia Protocol Enoxaparin Sodium 40 mg
== END 2022-07-17 19:15 | disposition home or self-care (01) | DRG 425 ==
LOC: ANHIMU 07-16 18:49 → ANH3MEDSUR 07-17 12:07 → ANHIMU 07-18 11:28
PROVIDERS: Nurse Practitioner; Admitting Provider Internal Medicine; PCP Nurse Practitioner; Visit Provider Chiropractor
DX: E83.42 Hypomagnesemia (principal); E44.0 Moderate protein-calorie malnutrition; E11.9 Type 2 diabetes mellitus without complications; F10.20 Alcohol dependence, uncomplicated; Z79.4 Long term (current) use of insulin; T38.3X6A Underdosing of insulin and oral hypoglycemic [antidiabetic] drugs, initial encounter; F17.210 Nicotine dependence, cigarettes, uncomplicated; E87.6 Hypokalemia; Z68.1 Body mass index [BMI] 19.9 or less, adult; Z91.120 Patient's intentional underdosing of medication regimen due to financial hardship; Z59.5 Extreme poverty; Z59.02 Unsheltered homelessness
CPT/HCPCS: 36415; 80048; 82948; 83036; 83735; 84100; 84484; 85025; 85610; 85730; 87493; 93005; 97165; A9270; J1650; J1815; J2060; J2405; J3411; J3475; J3480; J7030; J7040; J7120

== ENCOUNTER 2022-08-08 21:45 | Observation (INO) | payer OTHER, SELFPAY ==
--- NOTE | ~2022-08-08 | XR_ITS ---
AP and lateral views of the right tibia/fibula Clinical History: Ulceration at the anterior distal right salvador Findings: No acute fracture or dislocation is seen. Osseous alignment is anatomic. Joint spaces are p reserved without significant erosive or degenerative change. Soft tissues are unremarkable. Impression: Unremarkable right tib-fib radiographs. Reviewed, dictated and finalized at [facility]. Impression: Unremarkable right tib-fib radiographs.
--- NOTE | ~2022-08-08 | CT_ITS ---
CT of the Abdomen and Pelvis: Indication: Abdominal pain Technique: 2.5 mm axial scans were obtained through the abdomen and pelvis following intravenous adm inistration of 100 cc of Omnipaque 350. Dose reduction technique was used on this scan by utilizing a utomated exposure control and iterative reconstruction technique. The dose-length product (DLP) was 2 74.20 mGy-cm. Findings: Scans through the lung bases demonstrate numerous small groundglass nodular opacities in t he left lower lobe, consistent with pneumonia. There is diffuse fatty infiltration of the liver. Common bile duct and main pancreatic duct stents ar e present. There is mild dilatation of main pancreatic duct with several small pancreatic calcificati on, consistent with sequela of chronic pancreatitis. The spleen, gallbladder, adrenals and kidneys ar e within normal limits. No evidence of aortic aneurysm. No lymphadenopathy. No bowel obstruction or definite bowel wall thickening. There is no evidence to suggest acute appendi citis. Images through the pelvis were performed. Urinary bladder unremarkable. Prostate gland and seminal ve sicles are unremarkable. No ascites. Bilateral L5 pars interarticularis defects are present. Impression: Left lower lobe pneumonia. Diffuse fatty infiltration of liver. Common bile duct and main pancreatic duct stents in place, with probable chronic pancreatitis. Reviewed, dictated and finalized at location . Impression: Left lower lobe pneumonia. Diffuse fatty infiltration of liver. Common bile duct and main pancreatic duct stents in place, with probable chroni c pancreatitis.
--- NOTE | ~2022-08-08 | XR_ITS ---
Portable chest x-ray Comparison: 07/14/2022 Clinical History: Cough Findings: Lungs are clear, without focal consolidation or pleural effusion. Cardiomediastinal silho uette is stable. Bones and soft tissues are unremarkable. Impression: Normal chest. Reviewed, dictated and finalized at location . Impression: Normal chest.
[2022-08-08 21:47] VITALS: BP 130/106; PULSE 122; RESP 20; TEMP 36.7; O2SAT 99
--- NOTE | 2022-08-08 21:54 | ECG_ITS ---
Measurements Intervals Quinn Rate: 112 P: 56 NH: 179 QRS: 69 QRSD: 77 T: 67 QT: 381 QTc: 521 Interpretive Statements SINUS TACHYCARDIA POSSIBLE LEFT ATRIAL ENLARGEMENT [-0.1mV P-WAVE IN V1/V2] NONSPECIFIC T-WAVE ABNORMALITY ABNORMAL ECG COMPARED TO ECG 07/15/2022 18:59:55 T-WAVE ABNORMALITY NOW PRESENT Electronically Signed On 08-10-2022 16:32:12 CDT by Kris Abebe M.D.
--- NOTE | 2022-08-08 22:07 | ED.GENADULT ---
HPI - General Adult General Chief complaint: Extremity Problem,Nontraumatic Stated complaint: Diabetic Issues History of Present Illness HPI narrative: This is a 36-year-old homeless, type 1 diabetic, history of polysubstance use disorder presenting to ED with failure to thrive. Patient was admitted to [facility] approximately 1 month ago for multiple electrolyte abnormalities. Patient was kept for several days and they were unable to placement in [facility]. He was then discharged into his car. He was diagnosed with C diff that time and was started PO vanco but did not fill any of his prescriptions after he left. Patient says he did not fill any of his medications due to depression. Denies SI/HI. In terms of physical complaints the patient main complaint is lower extremity pain. Patient has burning stabbing and numbness to his lower extremities any time they are touched. He says that the pain is so bad is no longer able to get up. He has been defecating on himself in the tent that he lives. The patient has been on Lyrica in the past for diabetic neuropathy. patient is also complaining diarrhea and left lower quadrant abdominal pain. patient denies fever chills nausea vomiting chest pain difficulty breathing or urinary symptoms. Related Data Home Medications Medication Instructions Recorded Confirmed No Home Medications 08/09/22 08/09/22 Allergies Allergy/AdvReac Type Severity Reaction Status Date / Time cefaclor [From Ceclor] Allergy Anaphylaxis Verified 07/14/22 17:33 ciprofloxacin [From Cipro] Allergy Anaphylaxis Verified 07/14/22 17:33 PMFSH Past Medical History Medical History Anemia C. difficile diarrhea Decreased appetite Diabetes mellitus Weight loss Family History Family History Father Bladder cancer Social History Social History Smoking packs per day: 1 Smoking cigarettes per day: 20.0 Years smoked: 20 Smoking pack-years: 20.00 Smoking status: Current every day smoker Tobacco type: cigarettes Second hand tobacco smoke exposure: No Additional smoking assessment comments: Marijuana daily Alcohol intake: current Drinks per week: 9 Substance use: never Substance use type: marijuana Lack of Transportation: No Lack of Food: Sometimes True Current Housing: I Do Not Have Housing Concerned About Future Housing: YES Difficulty Paying Gas/Electric Bills: No Difficulty Paying for Meds: No Currently Unemployed: No Education: Trade/Vocational Certificate Difficulty w/ Childcare or Family Care: No Spiritual care concerns: No Exam Narrative: APPEARANCE: Patient is disheveled and appears chronically unwell, significant malnutrition. Head: atraumatic. EYES: EOMI, NOSE: Atraumatic NECK: Trachea midline RESPIRATORY: No increased rate of breathing, scattered expiratory wheezing CARDIOVASCULAR: RRR, Plus two pitting edema of the lower extremities ABDOMINAL: tenderness to palpation in the lower left and upper left quadrants. Voluntary guarding MUSCULOSKELETAl: No obvious deformities NEURO: Alert. Moving 4/4 extremities SKIN:: several small wounds over the right distal tibia. No purulent drainage or fluctuance. PSYCHIATRIC: Normal affect Course Vital Signs Vital signs: Vital Signs Temperature 98.1 F 08/08/22 21:47 Pulse Rate 122 H 08/08/22 21:47 Respiratory Rate 20 08/08/22 21:47 Blood Pressure 130/106 H 08/08/22 21:47 Pulse Oximetry 99 08/08/22 21:47 Oxygen Delivery Room Air 08/08/22 21:47 Temperature 98.1 F 08/09/22 01:38 Pulse Rate 113 H 08/09/22 01:38 Respiratory Rate 20 08/09/22 01:38 Blood Pressure 124/98 H 08/09/22 02:01 Pulse Oximetry 100 08/09/22 02:30 Oxygen Delivery Room Air 08/09/22 01:38 Medical Decision Ma
[2022-08-08] MEDS: HYDROmorphone HCL INJ (*CRX) 2 MG/ML VIAL 0.5 MG IV PUSH (22:12)
[2022-08-08 22:13] LABS: Glucose Point of Care 296 mg/dl (65-105)
[2022-08-08] MEDS: ACETAMINOPHEN 500 MG TABLET 1000 MG PO (22:13)
[2022-08-08] MEDS: SODIUM CHLORIDE 0.9% IV 2,000 ML 999 ML IV CONT (22:13)
[2022-08-08] MEDS: GABAPENTIN 300 MG CAPSULE 600 MG PO (22:15)
[2022-08-08 22:19] LABS: White Blood Count 7.5 K/mm3 (4.8-10.8)
[2022-08-08 22:20] LABS: Basophils Absolute Auto 0.02 K/mm3 (0.00-0.10); Basophils Percent Auto 0.3 % (0.0-1.0); Eosinophils Absolute Auto 0.03 K/mm3 (0.02-0.50); Eosinophils Percent Auto 0.4 % (1.0-6.0); Hematocrit 30.1 % (40.0-54.0); Hemoglobin 10.1 g/dL (14.0-18.0); Immature Granulocyte Absolute 0.04 K/mm3 (0.00-0.00); Immature Granulocyte Percent A 0.5 % (0.0-0.0); Lymphocytes Absolute Auto 1.87 K/mm3 (1.10-4.50); Mean Corpuscular HGB Conc 33.6 g/dL (32.0-36.0); Mean Corpuscular Hemoglobin 34.6 pg (27.0-31.0); Mean Corpuscular Volume 103.1 fL (78.0-102.0); Mean Platelet Volume 9.8 fl (8.7-11.0); Monocytes Absolute Auto 0.72 K/mm3 (0.10-0.90); Monocytes Percent Auto 9.6 % (2.0-11.0); Neutrophils Absolute Auto 4.8 K/mm3 (1.7-7.2); Neutrophils Percent Auto 64.2 % (50.0-70.0); Platelet Count Result 211 K/mm3 (150-420); Red Blood Count 2.92 M/mm3 (4.70-6.10); Red Cell Distribution Width 19.8 % (11.6-14.4)
[2022-08-08 22:39] LABS: Lactic Acid Reflex 7.9 mmol/L (0.4-2.0)
[2022-08-08 22:43] LABS: Alanine Aminotransferase 44 U/L (16-63); Albumin Level 2.4 g/dL (3.4-5.0); Alkaline Phosphatase 226 U/L (46-116); Anion Gap 12 mmol/L (8-16); Aspartate Amino Transferase 93 U/L (15-37); Bilirubin,Total 1.1 mg/dL (0.00-1.00); Blood Urea Nitrogen 2 mg/dL (7-18); Calcium 7.9 mg/dL (8.5-10.1); Carbon Dioxide 32 mmol/L (21-32); Chloride 98 mmol/L (98-108); Creatine Kinase 51 U/L (39-308); Estimated CRCL calculation 122 ml/min; Estimated Glomerular Filt Rate > 60; Glucose 296 mg/dL (70-99); Lipase 19 U/L (16-77); Magnesium 1.3 mg/dL (1.8-2.4); NT Pro B Type Natriuretic Pept 40 pg/mL (0-125); Osmolality Calculated 301 mOsm/kg (285-295); Phosphorus 3.4 mg/dL (2.6-4.7); Potassium 2.9 mmol/L (3.5-5.1); Sodium 142 mmol/L (136-145); Total Protein 6.5 g/dL (6.4-8.2)
[2022-08-08 22:45] LABS: Ethanol 284 mg/dL (0-6)
[2022-08-08] MEDS: POTASSIUM CHLORIDE 20 MEQ TABLET 80 MEQ PO (23:13)
[2022-08-08] MEDS: SODIUM CHLORIDE 0.9% IV 1,000 ML 999 ML IV CONT (23:14)
[2022-08-08] MEDS: KETOROLAC 15 MG/ML VIAL (*BKC) IV PUSH (23:14)
[2022-08-08] MEDS: MAGNESIUM SULF 2 GM/WATER 50ML 2 GM/50 ML BAG IVPB (23:47)
[2022-08-08] MEDS: SODIUM CHLORIDE 0.9% IV 1,000 ML 150 ML IV CONT (23:47)
[2022-08-09] VITALS (21 sets, daily range): BP systolic 114–160; BP diastolic 83–103; PULSE 103–120; RESP 16–20; TEMP 35.8–36.9; O2SAT 81–100; BMI 18.3
[2022-08-09 00:08] LABS: Appearance Urine Clear (Clear); Bilirubin Urine Negative (Negative); Blood Urine Trace-Intact (Negative); Color Urine Yellow (Yellow); Glucose Urine UA 3+ (Negative); Ketones Urine Negative (Negative); Leukocyte Esterase Ur Negative LEU/UL (Negative); Nitrate Urine Negative (Negative); Protein Urine Negative (Negative)
[2022-08-09 00:13] LABS: Add Urine Microscopic? YES; Bacteria Urine None seen /hpf; Squamous Epithelial Cell Urine None seen /hpf (Few); WBC Urine 0-3 /hpf (0-3)
[2022-08-09 00:16] LABS: Influenza A QL RT-PCR Negative (Negative); Influenza B QL RT-PCR Negative (Negative); RSV RNA, RT-PCR Negative (Negative); SARS-CoV-2 RNA PCR Negative (Negative)
[2022-08-09 00:23] LABS: Reflex Lactic Acid Yes or No Add Lactic
[2022-08-09 00:28] LABS: Amphetamine Screen Urine Negative (Negative); Barbiturate Screen Urine Negative (Negative); Benzodiazepines Screen Urine Positive (Negative); Cannabinoid Screen Urine Positive (Negative); Cocaine Screen Urine Negative (Negative); Methadone Screen Urine Negative (Negative); Opiate Screen Urine Negative (Negative); Phencyclidine Screen Urine Negative (Negative)
[2022-08-09] MEDS: CEFEPIME 2 GM/NS 50 ML 2 GM/50 ML BAG IVPB (01:31)
[2022-08-09] MEDS: HYDROmorphone HCL INJ (*CRX) 2 MG/ML VIAL 0.5 MG IV PUSH (01:35)
[2022-08-09] MEDS: ONDANSETRON INJ 4 MG/2 ML VIAL IV PUSH (03:15)
[2022-08-09] MEDS: SODIUM CHLORIDE 0.9% IV 1,000 ML 999 ML IV CONT (03:20)
[2022-08-09] MEDS: VANCOMYCIN HCL 250 MG CAPSULE PO ×4 (03:23→20:23)
[2022-08-09] MEDS: SODIUM CHLORIDE 0.9% IV 1,000 ML 250 ML IV CONT ×3 (03:39→17:28)
[2022-08-09] MEDS: ACETAMINOPHEN 325 MG TABLET 650 MG PO (05:15)
[2022-08-09] MEDS: chlordiazePOXIDE (*CRX) 25 MG CAPSULE PO ×4 (06:47→23:01)
[2022-08-09 07:07] LABS: Glucose Point of Care 246 mg/dl (65-105)
[2022-08-09 08:26] LABS: Basophils Absolute Auto 0.01 K/mm3 (0.00-0.10); Basophils Percent Auto 0.2 % (0.0-1.0); Eosinophils Absolute Auto 0.04 K/mm3 (0.02-0.50); Hematocrit 26.5 % (40.0-54.0); Hemoglobin 8.9 g/dL (14.0-18.0); Immature Granulocyte Absolute 0.01 K/mm3 (0.00-0.00); Immature Granulocyte Percent A 0.2 % (0.0-0.0); Lymphocytes Percent Auto 22.4 % (18.0-42.0); Mean Corpuscular HGB Conc 33.6 g/dL (32.0-36.0); Mean Corpuscular Hemoglobin 34.4 pg (27.0-31.0); Mean Corpuscular Volume 102.3 fL (78.0-102.0); Mean Platelet Volume 9.2 fl (8.7-11.0); Monocytes Absolute Auto 0.39 K/mm3 (0.10-0.90); Monocytes Percent Auto 9.7 % (2.0-11.0); Neutrophils Absolute Auto 2.7 K/mm3 (1.7-7.2); Neutrophils Percent Auto 66.5 % (50.0-70.0); Platelet Count Result 167 K/mm3 (150-420); Red Blood Count 2.59 M/mm3 (4.70-6.10); Red Cell Distribution Width 19.3 % (11.6-14.4)
[2022-08-09 08:46] LABS: Lactic Acid Reflex 5.3 mmol/L (0.4-2.0)
[2022-08-09 08:55] LABS: Anion Gap 9 mmol/L (8-16); Blood Urea Nitrogen 1 mg/dL (7-18); Calcium 6.8 mg/dL (8.5-10.1); Carbon Dioxide 31 mmol/L (21-32); Chloride 100 mmol/L (98-108); Estimated CRCL calculation 149 ml/min; Estimated Glomerular Filt Rate > 60; Glucose 238 mg/dL (70-99); Magnesium 1.2 mg/dL (1.8-2.4); Osmolality Calculated 293 mOsm/kg (285-295); Potassium 3.2 mmol/L (3.5-5.1); Sodium 140 mmol/L (136-145)
[2022-08-09 08:57] LABS: Ethanol 23 mg/dL (0-6)
[2022-08-09] MEDS: FOLIC ACID 1 MG TABLET PO (09:04)
[2022-08-09] MEDS: THIAMINE HCL 100 MG TABLET PO (09:04)
[2022-08-09] MEDS: MULTIVITAMINS THERAPEUTIC TAB (*BKC) 1 TABLET PO (09:04)
[2022-08-09] MEDS: HYDROcodone/acetaminophen (*CRX) 10-325 MG TABLET 1 TAB PO ×3 (09:04→21:27)
[2022-08-09] MEDS: POTASSIUM CHLORIDE 20 MEQ TABLET 40 MEQ PO ×2 (09:55→17:07)
[2022-08-09] MEDS: MAGNESIUM SULF 2 GM/WATER 50ML 2 GM/50 ML BAG IVPB (09:55)
[2022-08-09] MEDS: SODIUM CHLORIDE 0.9% IV 1000 ML BAG IVPB (09:55)
[2022-08-09] MEDS: GABAPENTIN 100 MG CAPSULE PO (10:06)
--- NOTE | 2022-08-09 10:19 | PM.IMHP ---
H&P: HPI History of Present Illness Date/Time: 08/09/22 10:19 Chief Complaint: weakness in lower extremity pain Narrative: this is a 36-year-old homeless male with a history of type 2 diabetes polysubstance abuse. According to patient for the last 2 days he was unable to walk due to weakness and swelling in his right lower extremities he also notes that he had a open sore to his right lower extremity. Patient notes that he developed blisters to his right lower extremities. He also notes that the blisters had developed a foul smell. Patient came to [facility] urgency department via personal vehicle. Patient informed nursing staff that he had thoughts of suicide within the last 30 days. During our assessment patient notes that he has not had suicidal or homicidal ideations in the last 30 days he did note that his friend 2 months ago and at that time he has suicidal thoughts but he does not have suicidal thoughts now while in the ER patient was tachycardic he also had a elevated lactic acid level in his magnesium and potassium level was out range with elevated glucose level. patient was previously discharged from [facility] and diagnosed with C diff. According to patient he has had diarrhea to the point where he would defecate on itself because he could not make it to the restroom and he has been wearing depends. he also notes that he was not aware that he has C diff on his discharge has not been taking his medication. Patient has been given IV fluid along with vancomycin cefepime and is being treated for pain with Toradol Dilaudid Tylenol and gabapentin while in the ED. The patient denies SOB, CP, palpitation, extremity numbness, lightheadedness, dizziness, constipation, chills, or fever. He does complain of lower extremity pain that he describes as pins and needles. He notes he wants to gabapentin for nerve pain continue the use of gabapentin. Review of Systems Review of Systems: All systems reviewed & are unremarkable except as noted in HPI and below PMFSH Past Medical History Medical History Anemia C. difficile diarrhea Decreased appetite Diabetes mellitus Weight loss Family History Family History Father Bladder cancer Social History Social History Smoking packs per day: 1 Smoking cigarettes per day: 20.0 Years smoked: 20 Smoking pack-years: 20.00 Smoking status: Current every day smoker Tobacco type: cigarettes Second hand tobacco smoke exposure: No Additional smoking assessment comments: Marijuana daily Alcohol intake: current Drinks per week: 3 Substance use: current Substance use type: marijuana Last use: 08/07/2022 Lack of Transportation: YES Lack of Food: Often True Current Housing: I Do Not Have Housing Concerned About Future Housing: YES Difficulty Paying Gas/Electric Bills: No Difficulty Paying for Meds: No Currently Unemployed: YES Education: Trade/Vocational Certificate Difficulty w/ Childcare or Family Care: No Spiritual care concerns: No Meds Home Medications and Allergies Home Medications Medication Instructions Recorded Confirmed Type No Home Medications 08/09/22 08/09/22 History Allergies Allergy/AdvReac Type Severity Reaction Status Date / Time cefaclor [From Ceclor] Allergy Anaphylaxis Verified 07/14/22 17:33 ciprofloxacin [From Cipro] Allergy Anaphylaxis Verified 07/14/22 17:33 Vital Signs Vital Signs - 24 hr 08/08/22 21:47 08/09/22 01:38 08/09/22 01:40 Temperature 36.7 C 36.7 C Pulse Rate 122 H 113 H Respiratory Rate 20 20 Blood Pressure 130/106 H 128/96 H Pulse Oximetry 99 99 93 Oxygen Delivery Room Air Room Air 08/09/22 01:45 08/09/22 02:00 08/09/22 02:01 Temperature Pulse Rate Respiratory Rate Blood Pressure 124/98 H Pulse Oxim
--- NOTE | 2022-08-09 12:00 | PC.NURSE ---
Pt states, My pain is not being adequately controlled. I would like you to ask the nurse practitioner for something else and if she won't give it to me I want to talk to who is in charge of her . MARJ Paul notified by charge nurse.
[2022-08-09 12:06] LABS: Glucose Point of Care 210 mg/dl (65-105)
[2022-08-09] MEDS: FUROSEMIDE INJ 40 MG/4 ML VIAL IV PUSH (12:28)
[2022-08-09] MEDS: GABAPENTIN 100 MG CAPSULE 200 MG PO ×2 (12:29→17:07)
--- NOTE | 2022-08-09 12:30 | PC.NURSE ---
Patient met with staff from [facility]. It was determined pt was not an immediate threat to himself or others. Crisis safety plan implemented by [facility] staff is being placed in the chart.
[2022-08-09 15:37] LABS: Alanine Aminotransferase 61 U/L (16-63); Albumin Level 2.4 g/dL (3.4-5.0); Alkaline Phosphatase 326 U/L (46-116); Anion Gap 8 mmol/L (8-16); Aspartate Amino Transferase 207 U/L (15-37); Bilirubin,Total 2.7 mg/dL (0.00-1.00); Blood Urea Nitrogen 2 mg/dL (7-18); Carbon Dioxide 34 mmol/L (21-32); Chloride 96 mmol/L (98-108); Estimated CRCL calculation 126 ml/min; Estimated Glomerular Filt Rate > 60; Glucose 220 mg/dL (70-99); Magnesium 1.2 mg/dL (1.8-2.4); Osmolality Calculated 289 mOsm/kg (285-295); Potassium 3.6 mmol/L (3.5-5.1); Sodium 138 mmol/L (136-145); Total Protein 6.2 g/dL (6.4-8.2)
[2022-08-09 15:42] LABS: Lactic Acid Reflex 4.5 mmol/L (0.4-2.0)
[2022-08-09 15:51] LABS: Ethanol < 3 mg/dL (0-6)
--- NOTE | 2022-08-09 18:12 | PC.NURSE ---
Mayuri Ramírez, RATE CLERK PASSENGER/Hospitalist, notified of sepsis trigger due to pulse rate and lactic acid level. Hospitalist acknowledged trigger.
[2022-08-09 18:17] LABS: Reflex Lactic Acid Yes or No Add Lactic
[2022-08-09] MEDS: traZODone HCL 50 MG TABLET PO (20:23)
[2022-08-09 20:34] LABS: Glucose Point of Care 201 mg/dl (65-105)
[2022-08-10] VITALS (8 sets, daily range): BP systolic 95–128; BP diastolic 64–84; PULSE 70–124; RESP 16–18; TEMP 36–36.6; O2SAT 95–98
[2022-08-10] MEDS: SODIUM CHLORIDE 0.9% IV 1,000 ML 250 ML IV CONT ×2 (01:42→06:30)
[2022-08-10] MEDS: HYDROcodone/acetaminophen (*CRX) 10-325 MG TABLET 1 TAB PO ×4 (03:28→23:58)
[2022-08-10 05:18] LABS: Hematocrit 24.2 % (40.0-54.0); Hemoglobin 8.1 g/dL (14.0-18.0); Mean Corpuscular HGB Conc 33.5 g/dL (32.0-36.0); Mean Corpuscular Hemoglobin 34.6 pg (27.0-31.0); Mean Corpuscular Volume 103.4 fL (78.0-102.0); Mean Platelet Volume 10.3 fl (8.7-11.0); Platelet Count Result 145 K/mm3 (150-420); Red Blood Count 2.34 M/mm3 (4.70-6.10); Red Cell Distribution Width 19.5 % (11.6-14.4); White Blood Count 4.9 K/mm3 (4.8-10.8)
[2022-08-10 05:35] LABS: Alanine Aminotransferase 53 U/L (16-63); Albumin Level 1.9 g/dL (3.4-5.0); Alkaline Phosphatase 251 U/L (46-116); Anion Gap 6 mmol/L (8-16); Aspartate Amino Transferase 180 U/L (15-37); Bilirubin,Total 4.6 mg/dL (0.00-1.00); Blood Urea Nitrogen 2 mg/dL (7-18); Calcium 7.3 mg/dL (8.5-10.1); Carbon Dioxide 34 mmol/L (21-32); Chloride 101 mmol/L (98-108); Estimated CRCL calculation 149 ml/min; Estimated Glomerular Filt Rate > 60; Glucose 134 mg/dL (70-99); Osmolality Calculated 290 mOsm/kg (285-295); Potassium 3.4 mmol/L (3.5-5.1); Sodium 141 mmol/L (136-145); Total Protein 5.3 g/dL (6.4-8.2)
[2022-08-10] MEDS: chlordiazePOXIDE (*CRX) 25 MG CAPSULE PO ×4 (05:50→23:58)
[2022-08-10] MEDS: MAGNESIUM SULF 4 GM/WATER100ML 4 GM/100 ML BAG IVPB (06:31)
[2022-08-10] MEDS: METOPROLOL TARTRATE INJ 5 MG/5 ML VIAL IV PUSH (06:49)
[2022-08-10 07:10] LABS: Lactic Acid Reflex 1.8 mmol/L (0.4-2.0)
[2022-08-10 07:57] LABS: Glucose Point of Care 107 mg/dl (65-105)
[2022-08-10] MEDS: FUROSEMIDE INJ 40 MG/4 ML VIAL IV PUSH (08:29)
[2022-08-10] MEDS: VANCOMYCIN HCL 250 MG CAPSULE PO ×4 (08:29→20:29)
[2022-08-10] MEDS: THIAMINE HCL 100 MG TABLET PO (08:30)
[2022-08-10] MEDS: POTASSIUM CHLORIDE 20 MEQ TABLET 40 MEQ PO ×2 (08:30→17:10)
[2022-08-10] MEDS: FOLIC ACID 1 MG TABLET PO (08:30)
[2022-08-10] MEDS: MULTIVITAMINS THERAPEUTIC TAB (*BKC) 1 TABLET PO (08:30)
[2022-08-10] MEDS: METOPROLOL SUCCINATE EXT REL 12.5 MG TABCR PO (09:26)
[2022-08-10] MEDS: GABAPENTIN 300 MG CAPSULE PO ×3 (09:31→17:10)
--- NOTE | 2022-08-10 10:35 | P.PN_ITS ---
Progress Note: A&P Assessment and Plan (1) Lower extremity edema: Code(s): R60.0 - Localized edema Status: Acute Assessment and Plan: * Etiology unknown possibly secondary to congestive heart failure versus infe ction * started Lasix * will order echo on discharge * chest x-ray normal (2) C. difficile diarrhea: Code(s): A04.72 - Enterocolitis due to Clostridium difficile, not specified as recurrent Status: Acute Assessment and Plan: * restarted vancomycin p.o. * patient educated on the importance of taking his vancomycin on discharge (3) Weight loss: Code(s): R63.4 - Abnormal weight loss Status: Acute Assessment and Plan: * started glucerna (4) Decreased appetite: Code(s): R63.0 - Anorexia Status: Acute (5) Hypokalemia: Code(s): E87.6 - Hypokalemia Status: Acute Assessment and Plan: * possibly secondary to dehydration due to diarrhea from the C diff * sodium within 3.4 * will replace with supplements (6) Hypomagnesemia: Code(s): E83.42 - Hypomagnesemia Status: Acute Assessment and Plan: * will replace with supplements * magnesium 1.3> 1.2> 1.0 (7) Insulin dependent diabetes mellitus: Status: Acute Assessment and Plan: * stable * patient notes that he does not take insulin at his diet controlled his hemoglobin A1c was 6.0 last check * continue diabetic diet * continue sliding scale (8) Tobacco dependence: Code(s): F17.200 - Nicotine dependence, unspecified, uncomplicated Status: Acute Assessment and Plan: education on cessation (9) Alcohol dependence: Code(s): F10.20 - Alcohol dependence, uncomplicated Status: Acute Assessment and Plan: * education on cessation (10) Sepsis: Code(s): A41.9 - Sepsis, unspecified organism Status: Acute Assessment and Plan: * possibly secondary to infection * as evidenced by tachycardia elevated lactic acid * patient lactic acid now within normal limits * will monitor heart rate * Subjective Date/time seen: 08/10/22 10:35 Interval history: patient notes that he continues to have pain in his lower extremity he notes that the numbness has decreased but he still feels the pins and needle sensations. His gabapentin has been increased. The patient denies SOB, CP, palpitation, extremity numbness, lightheadedness, dizziness, constipation, chills, or fever. Review of Systems Review of Systems: All systems reviewed & are unremarkable except as noted in HPI and below Exam Narrative: GENERAL: This is a well-nourished, well-developed patient, in no apparent distress. HEAD: normocephalic, atraumatic. EYES: PERRL. Sclera clear/white. Vision is grossly intact. EARS: External ears normal, auditory canals clear and without drainage, TMs normal without perforation. Hearing grossly intact. NOSE: External nose normal with no obvious nasal discharge, nares without redness, no rhinorrhea. THROAT: Mucous membranes moist, posterior pharynx clear. NECK: Neck supple, non-tender without lymphadenopathy, masses or thyromegaly. CARDIOVASCULAR: Regular rate and rhythm without murmurs, gallops, or rubs. RESPIRATORY: Clear to auscultation. Breath sounds equal bilaterally. No wheezes, rales, or rhonchi. GASTROINTESTINAL: Abdomen soft, non-tender, nondistended. Bowel sounds are active. No hepato-splenomegaly, or palpable masses. No guarding. SKIN: open sores
--- NOTE | 2022-08-10 10:35 | WPDPN ---
Progress Note: A&P Assessment and Plan (1) Lower extremity edema: Code(s): R60.0 - Localized edema Status: Acute Assessment and Plan: Etiology unknown possibly secondary to congestive heart failure versus infection started Lasix will order echo on discharge chest x-ray normal (2) C. difficile diarrhea: Code(s): A04.72 - Enterocolitis due to Clostridium difficile, not specified as recurrent Status: Acute Assessment and Plan: restarted vancomycin p.o. patient educated on the importance of taking his vancomycin on discharge (3) Weight loss: Code(s): R63.4 - Abnormal weight loss Status: Acute Assessment and Plan: started glucerna (4) Decreased appetite: Code(s): R63.0 - Anorexia Status: Acute (5) Hypokalemia: Code(s): E87.6 - Hypokalemia Status: Acute Assessment and Plan: possibly secondary to dehydration due to diarrhea from the C diff sodium within 3.4 will replace with supplements (6) Hypomagnesemia: Code(s): E83.42 - Hypomagnesemia Status: Acute Assessment and Plan: will replace with supplements magnesium 1.3> 1.2> 1.0 (7) Insulin dependent diabetes mellitus: Status: Acute Assessment and Plan: stable patient notes that he does not take insulin at his diet controlled his hemoglobin A1c was 6.0 last check continue diabetic diet continue sliding scale (8) Tobacco dependence: Code(s): F17.200 - Nicotine dependence, unspecified, uncomplicated Status: Acute Assessment and Plan: education on cessation (9) Alcohol dependence: Code(s): F10.20 - Alcohol dependence, uncomplicated Status: Acute Assessment and Plan: education on cessation (10) Sepsis: Code(s): A41.9 - Sepsis, unspecified organism Status: Acute Assessment and Plan: possibly secondary to infection as evidenced by tachycardia elevated lactic acid patient lactic acid now within normal limits will monitor heart rate Subjective Date/time seen: 08/10/22 10:35 Interval history: patient notes that he continues to have pain in his lower extremity he notes that the numbness has decreased but he still feels the pins and needle sensations. His gabapentin has been increased. The patient denies SOB, CP, palpitation, extremity numbness, lightheadedness, dizziness, constipation, chills, or fever. Review of Systems Review of Systems: All systems reviewed & are unremarkable except as noted in HPI and below Exam Narrative: GENERAL: This is a well-nourished, well-developed patient, in no apparent distress. HEAD: normocephalic, atraumatic. EYES: PERRL. Sclera clear/white. Vision is grossly intact. EARS: External ears normal, auditory canals clear and without drainage, TMs normal without perforation. Hearing grossly intact. NOSE: External nose normal with no obvious nasal discharge, nares without redness, no rhinorrhea. THROAT: Mucous membranes moist, posterior pharynx clear. NECK: Neck supple, non-tender without lymphadenopathy, masses or thyromegaly. CARDIOVASCULAR: Regular rate and rhythm without murmurs, gallops, or rubs. RESPIRATORY: Clear to auscultation. Breath sounds equal bilaterally. No wheezes, rales, or rhonchi. GASTROINTESTINAL: Abdomen soft, non-tender, nondistended. Bowel sounds are active. No hepato-splenomegaly, or palpable masses. No guarding. SKIN: open sores to the right lower extremity anterior ankle NEURO: awake, alert, and oriented to person, place and time. There were no obvious focal neurologic abnormalities. EXTREMITIES: Normal range of motion. trace edema. No calf tenderness. Objective Data Vital Signs Vital Signs: Vital Signs - 24 hr 08/09/22 12:00 08/09/22 12:00 08/09/22 16:00 Temperature 36.6 C 35.8 C L Pulse Rate 106 H 105 H 120 H Respiratory Rate 20 17 Blood Pressure 160/92 H 137/100
[2022-08-10 11:50] LABS: Glucose Point of Care 299 mg/dl (65-105)
[2022-08-10] MEDS: DOXYCYCLINE HYCLATE 100 MG TABLET PO ×2 (12:34→20:29)
[2022-08-10 17:12] LABS: Glucose Point of Care 294 mg/dl (65-105)
--- NOTE | 2022-08-10 17:32 | PC.NURSE ---
cont claim he can not walk. did get self up and slowly walk to chair for supper. claims he does not understand why he is not getting ss insulin. explained that it was given in report that he did not want insulin and did not use it. he claims if he had a nice place to live, he would use it. revit drafter is being called at this time.
[2022-08-10 18:29] LABS: Magnesium 1.7 mg/dL (1.8-2.4)
[2022-08-10] MEDS: INSULIN HUMAN LISPRO (*BKC) 1,000 UNITS/10 ML VIAL 3 UNITS SUB-Q (18:35)
[2022-08-10] MEDS: MAGNESIUM OXIDE 400 MG TABLET PO (20:29)
[2022-08-11 04:00] VITALS: BP 98/75; PULSE 102; PULSE 104; RESP 16; TEMP 36; O2SAT 98
[2022-08-11] MEDS: chlordiazePOXIDE (*CRX) 25 MG CAPSULE PO (05:58)
[2022-08-11 07:27] LABS: Glucose Point of Care 178 mg/dl (65-105)
[2022-08-11 08:00] VITALS: BP 108/73; PULSE 102; PULSE 104; RESP 18; TEMP 36.3; O2SAT 98
[2022-08-11 08:34] VITALS: PULSE 104
[2022-08-11] MEDS: METOPROLOL SUCCINATE EXT REL 12.5 MG TABCR PO (08:34)
[2022-08-11] MEDS: MAGNESIUM OXIDE 400 MG TABLET PO (08:34)
[2022-08-11] MEDS: POTASSIUM CHLORIDE 20 MEQ TABLET 40 MEQ PO (08:34)
[2022-08-11] MEDS: VANCOMYCIN HCL 250 MG CAPSULE PO (08:34)
[2022-08-11] MEDS: FUROSEMIDE INJ 40 MG/4 ML VIAL IV PUSH (08:34)
[2022-08-11] MEDS: GABAPENTIN 300 MG CAPSULE PO (08:34)
[2022-08-11] MEDS: HYDROcodone/acetaminophen (*CRX) 10-325 MG TABLET 1 TAB PO (08:35)
[2022-08-11] MEDS: MULTIVITAMINS THERAPEUTIC TAB (*BKC) 1 TABLET PO (08:36)
[2022-08-11] MEDS: THIAMINE HCL 100 MG TABLET PO (08:36)
[2022-08-11] MEDS: FOLIC ACID 1 MG TABLET PO (08:36)
[2022-08-11] MEDS: DOXYCYCLINE HYCLATE 100 MG TABLET PO (08:37)
--- NOTE | 2022-08-11 09:43 | P.DS_ITS ---
DS: Admitting Diagnosis Discharge Date 08/11/2022 Admitting Diagnosis C diff, electrolyte imbalance, peripheral edema DS: Discharge Diagnosis Discharge Diagnosis (1) Lower extremity edema: Code(s): R60.0 - Localized edema Status: Acute Assessment and Plan: * Etiology unknown possibly secondary to congestive heart failure versus infection * started Lasix * will order echo on discharge * chest x-ray normal * patient will need to follow up with a echo * he will be discharged with Lasix p.r.n. for peripheral edema (2) C. difficile diarrhea: Code(s): A04.72 - Enterocolitis due to Clostridium difficile, not specified as recurrent Status: Acute Assessment and Plan: * restarted vancomycin p.o. * patient educated on the importance of taking his vancomycin on discharge (3) Weight loss: Code(s): R63.4 - Abnormal weight loss Status: Acute Assessment and Plan: * started glucerna (4) Decreased appetite: Code(s): R63.0 - Anorexia Status: Acute (5) Hypokalemia: Code(s): E87.6 - Hypokalemia Status: Acute Assessment and Plan: * possibly secondary to dehydration due to diarrhea from the C diff * sodium within 3.4 * will replace with supplements * repeat labs in 1 week with results going to his primary care physician (6) Hypomagnesemia: Code(s): E83.42 - Hypomagnesemia Status: Acute Assessment and Plan: * will replace with supplements * magnesium 1.3> 1.2> 1.0>1.7 * repeat labs in 1 week with results once his primary care physician (7) Insulin dependent diabetes mellitus: Status: Acute Assessment and Plan: * stable * patient notes that he does not take insulin at his diet controlled his hemoglobin A1c was 6.0 last check * continue diabetic diet * continue sliding scale (8) Tobacco dependence: Code(s): F17.200 - Nicotine dependence, unspecified, uncomplicated Status: Acute Assessment and Plan: education on cessation (9) Alcohol dependence: Code(s): F10.20 - Alcohol dependence, uncomplicated Status: Acute Assessment and Plan: * education on cessation (10) Sepsis: Code(s): A41.9 - Sepsis, unspecified organism Status: Acute Assessment and Plan: * resolved * possibly secondary to infection * as evidenced by tachycardia elevated lactic acid * patient lactic acid now within normal limits * will monitor heart rate * (11) Tachycardia: Code(s): R00.0 - Tachycardia, unspecified Status: Acute Assessment and Plan: * patient's heart rate 120-1 40s now on 104 * started metoprolol * patient will need to follow up with his primary care physician DS: Summary Hospital Course Reason for hospitalization: electrolyte imbalance, hypokalemia, Hypomagnesium Hospital Course: ?this is a 36-year-old homeless male with a history of type 2 diabetes polysubstance abuse.? According to patient for the last 2 days he was unable to walk due to weakness and swelling in his right lower extremities he also notes that he had a open sore to his right lower extremity.? Patient notes that he developed blisters to his right lower extremities.? He also notes that the blisters had developed a foul smell.? Patient came to? [facility] via personal vehicle.? Patient informed nursing staff that he had thoughts of suicide within the last? 30 days.? During our assessment patient notes that he has not had suicidal or homicid
--- NOTE | 2022-08-11 09:43 | PM.DS ---
DS: Admitting Diagnosis Discharge Date 08/11/2022 Admitting Diagnosis C diff, electrolyte imbalance, peripheral edema DS: Discharge Diagnosis Discharge Diagnosis (1) Lower extremity edema: Code(s): R60.0 - Localized edema Status: Acute Assessment and Plan: Etiology unknown possibly secondary to congestive heart failure versus infection started Lasix will order echo on discharge chest x-ray normal patient will need to follow up with a echo he will be discharged with Lasix p.r.n. for peripheral edema (2) C. difficile diarrhea: Code(s): A04.72 - Enterocolitis due to Clostridium difficile, not specified as recurrent Status: Acute Assessment and Plan: restarted vancomycin p.o. patient educated on the importance of taking his vancomycin on discharge (3) Weight loss: Code(s): R63.4 - Abnormal weight loss Status: Acute Assessment and Plan: started glucerna (4) Decreased appetite: Code(s): R63.0 - Anorexia Status: Acute (5) Hypokalemia: Code(s): E87.6 - Hypokalemia Status: Acute Assessment and Plan: possibly secondary to dehydration due to diarrhea from the C diff sodium within 3.4 will replace with supplements repeat labs in 1 week with results going to his primary care physician (6) Hypomagnesemia: Code(s): E83.42 - Hypomagnesemia Status: Acute Assessment and Plan: will replace with supplements magnesium 1.3> 1.2> 1.0>1.7 repeat labs in 1 week with results once his primary care physician (7) Insulin dependent diabetes mellitus: Status: Acute Assessment and Plan: stable patient notes that he does not take insulin at his diet controlled his hemoglobin A1c was 6.0 last check continue diabetic diet continue sliding scale (8) Tobacco dependence: Code(s): F17.200 - Nicotine dependence, unspecified, uncomplicated Status: Acute Assessment and Plan: education on cessation (9) Alcohol dependence: Code(s): F10.20 - Alcohol dependence, uncomplicated Status: Acute Assessment and Plan: education on cessation (10) Sepsis: Code(s): A41.9 - Sepsis, unspecified organism Status: Acute Assessment and Plan: resolved possibly secondary to infection as evidenced by tachycardia elevated lactic acid patient lactic acid now within normal limits will monitor heart rate (11) Tachycardia: Code(s): R00.0 - Tachycardia, unspecified Status: Acute Assessment and Plan: patient's heart rate 120-1 40s now on 104 started metoprolol patient will need to follow up with his primary care physician DS: Summary Hospital Course Reason for hospitalization: electrolyte imbalance, hypokalemia, Hypomagnesium Hospital Course: ?this is a 36-year-old homeless male with a history of type 2 diabetes polysubstance abuse.? According to patient for the last 2 days he was unable to walk due to weakness and swelling in his right lower extremities he also notes that he had a open sore to his right lower extremity.? Patient notes that he developed blisters to his right lower extremities.? He also notes that the blisters had developed a foul smell.? Patient came to? [facility] department via personal vehicle.? Patient informed nursing staff that he had thoughts of suicide within the last? 30 days.? During our assessment patient notes that he has not had suicidal or homicidal ideations in the last 30 days he did note that his friend 2 months ago and at that time he has suicidal thoughts but he does not have suicidal thoughts now while in the ER patient was tachycardic he also had a elevated lactic acid level in his magnesium and potassium level was out range with elevated glucose level. patient was previously discharged from [facility] and diagnosed with C diff.? According to patient he has had diarrhea to
[2022-08-11 09:53] LABS: Hematocrit 32.5 % (40.0-54.0); Hemoglobin 10.4 g/dL (14.0-18.0); Mean Corpuscular Volume 109.4 fL (78.0-102.0); Platelet Count Result 204 K/mm3 (150-420); Red Blood Count 2.97 M/mm3 (4.70-6.10); Red Cell Distribution Width 20.4 % (11.6-14.4); White Blood Count 5.6 K/mm3 (4.8-10.8)
[2022-08-11 10:07] LABS: Alanine Aminotransferase 79 U/L (16-63); Albumin Level 2.5 g/dL (3.4-5.0); Alkaline Phosphatase 340 U/L (46-116); Anion Gap 7 mmol/L (8-16); Aspartate Amino Transferase 213 U/L (15-37); Bilirubin,Total 3.6 mg/dL (0.00-1.00); Blood Urea Nitrogen 5 mg/dL (7-18); Calcium 8.6 mg/dL (8.5-10.1); Carbon Dioxide 31 mmol/L (21-32); Chloride 98 mmol/L (98-108); Estimated CRCL calculation 147 ml/min; Estimated Glomerular Filt Rate > 60; Glucose 245 mg/dL (70-99); Osmolality Calculated 287 mOsm/kg (285-295); Potassium 4.6 mmol/L (3.5-5.1); Sodium 136 mmol/L (136-145); Total Protein 6.9 g/dL (6.4-8.2)
[2022-08-11 10:21] LABS: Magnesium 1.5 mg/dL (1.8-2.4)
--- NOTE | 2022-08-11 14:16 | PC.NURSE ---
1150 patient taken to his persnal auto. completely full of personal living items. went over with him following up with md. explained message was left with his office and they were to call back with time. if no hear call back sunday. importance of hand hygiene. taking meds. following dm diet. given again list of places that might be able to help.
--- NOTE | 2022-08-14 10:18 | PC.NURSE ---
Pt states he received and understood the discharge instructions. Pt has no comments.
[2022-08-16 13:03] LABS: Glucose Point of Care 201 mg/dl (65-105)
== END 2022-08-11 11:50 | disposition home or self-care (01) ==
LOC: CHSED 08-09 03:19 → CHS2ND 08-09 08:02
PROVIDERS: Nurse Practitioner; Nurse Practitioner Family; Admitting Provider Internal Medicine; Emergency Provider Emergency Medicine; PCP Nurse Practitioner; Visit Provider Internal Medicine
DX: A41.9 Sepsis, unspecified organism (principal); E87.6 Hypokalemia; E83.42 Hypomagnesemia; E11.40 Type 2 diabetes mellitus with diabetic neuropathy, unspecified; E46 Unspecified protein-calorie malnutrition; E44.0 Moderate protein-calorie malnutrition; A04.72 Enterocolitis due to Clostridium difficile, not specified as recurrent; L98.9 Disorder of the skin and subcutaneous tissue, unspecified; R06.2 Wheezing; F10.20 Alcohol dependence, uncomplicated; F17.210 Nicotine dependence, cigarettes, uncomplicated; Z68.1 Body mass index [BMI] 19.9 or less, adult; Z20.822 Contact with and (suspected) exposure to COVID-19; Z59.02 Unsheltered homelessness
CPT/HCPCS: 36415; 71045; 73590; 74177; 80048; 80053; 80307; 81001; 82550; 82565; 82948; 83605; 83690; 83735; 83880; 84100; 85025; 85027; 87040; 87070; 87205; 87637; 93005; 96361; 96365; 96366; 96367; 96374; 96375; 97110; 97161; 97530; 99285; A9270; G0378; G0379; J0456; J0692; J1170; J1815; J1885; J1940; J2405; J3370; J3475; J7030; Q9967

== ENCOUNTER 2022-10-29 10:34 | Emergency (ER) | payer OTHER, SELFPAY ==
[2022-10-29] VITALS (39 sets, daily range): BP systolic 95–113; BP diastolic 61–91; PULSE 112–133; RESP 11–26; TEMP 36.8–36.9; O2SAT 84–100
--- NOTE | ~2022-10-29 | XR_ITS ---
EXAMINATION: XR chest 2V DATE: 10/29/2022 11:15 INDICATION: Shortness of breath and cough. Leg swelling. TECHNIQUE: Frontal and lateral views of the chest were obtained. COMPARISON: Chest single view/, CT abdomen and pelvis/ FINDINGS: The lung volumes are small. There are small pleural effusions. There are airspace opacities in the mid and lower lung zones. There are interstitial opacities in right upper lobe. No pneumothor ax. The heart size is normal. IMPRESSION: 1. Diffuse lung disease, likely pneumonia. 2. Small pleural effusions. Reviewed, dictated and finalized at location A.
--- NOTE | ~2022-10-29 | CT_ITS ---
EXAMINATION: CT abdomen pelvis w con DATE: 10/29/2022 13:12 INDICATION: Hyperbilirubinemia. TECHNIQUE: Computed tomography (CT) of the abdomen and pelvis was performed with 100 mL Omnipaque 350 intravenous contrast. Automated exposure control and iterative reconstruction technique were employe d. The dose-length product was 1539.04 mGy-cm. COMPARISON: CT abdomen and pelvis 08/08/22 FINDINGS: The visualized portions of the lung bases demonstrate moderate-sized pleural effusions. The re is dependent atelectasis bilaterally. There is crazy paving in the upper lobes and right middle lo be, likely pulmonary edema. The heart size is normal. No pericardial effusion. There is diffuse hepat ic steatosis. The spleen is normal. The gallbladder is normal in size. Gallbladder wall thickening is noted, likely interstitial edema. Calcifications in the pancreas are consistent with chronic pancrea titis. The adrenal glands are normal. There are cysts in left kidney measuring up to 13 mm. There are 3 stones in right kidney measuring up to 4 mm. There is diffuse wall thickening of small and large b owel, likely interstitial edema. There is a large volume of ascites. There is a periumbilical portaca mychal shunt. There is mild peripancreatic lymphadenopathy, likely reactive. There is widespread body wa ll edema. There are chronic bilateral L5 pars defects. There is mild thoracic and lumbar spondylosis. IMPRESSION: 1. Anasarca including large volume of ascites, moderate-sized pleural effusions, and moderate pulmona ry edema. 2. Diffuse hepatic steatosis. 3. Portal venous hypertension. Reviewed, dictated and finalized at location A. IMPRESSION: 1. Anasarca including large volume of ascites, moderate-sized pleural effusions , and moderate pulmonary edema. 2. Diffuse hepatic steatosis. 3. Portal venous hypertension.
--- NOTE | 2022-10-29 10:39 | ECG_ITS ---
Measurements Intervals [place] Rate: 116 P: 27 TX: 152 QRS: 26 QRSD: 73 T: 33 QT: 277 QTc: 385 Interpretive Statements SINUS TACHYCARDIA LOW QRS VOLTAGE IN LIMB LEADS BORDERLINE T WAVE ABNORMALITY- INF/LAT LEADS ABNORMAL ECG COMPARED TO ECG 08/08/2022 22:05:49 NO SIGNIFICANT CHANGES Electronically Signed On 10-29-2022 18:37:33 CDT by Darryl Chandler D.O.
[2022-10-29 10:59] LABS: Basophils Absolute Auto 0.1 K/mm3 (0.0-0.1); Basophils Percent Auto 0.3 % (0.2-1.2); Eosinophils Percent Auto 0.1 % (0-4.4); Hematocrit 33.4 % (42.0-52.0); Immature Granulocyte Absolute 0.21 K/mm3 (0.00-0.031); Immature Granulocyte Percent A 0.8 % (0-0.5); Lymphocytes Absolute Auto 1.41 K/mm3 (0.9-3.2); Lymphocytes Percent Auto 5.2 % (18.3-44.2); Mean Corpuscular HGB Conc 32.9 g/dl (32-36); Mean Corpuscular Hemoglobin 34.8 pg (26-34); Mean Corpuscular Volume 105.7 fl (80-100); Mean Platelet Volume 10.1 fl (7.4-10.4); Monocytes Absolute Auto 1.9 K/mm3 (0.1-0.6); Neutrophils Absolute Auto 23.7 K/mm3 (1.3-6.7); Neutrophils Percent Auto 86.6 % (45.5-73.1); Platelet Count Result 310 k/mm3 (150-375); Red Blood Count 3.16 M/mm3 (4.6-6.20); Red Cell Distribution Width 15.9 % (11.5-14.5); White Blood Count 27.4 K/mm3 (4.5-10.0)
[2022-10-29 11:21] LABS: Macrocytosis 1+ (NORMAL); Platelet Estimate Adequate (Adequate); Schistocytes None Seen (NORMAL); Target Cells 1+ (NORMAL)
[2022-10-29 11:32] LABS: Alanine Aminotransferase 60 U/L (6-50); Albumin Level 2.2 g/dL (3.5-5.1); Alkaline Phosphatase 207 U/L (38-126); Anion Gap 1 mmol/L (8-16); Aspartate Amino Transferase 127 U/L (17-59); Bilirubin,Total 10.9 mg/dL (0.2-1.3); Blood Urea Nitrogen 9 mg/dL (9-20); Carbon Dioxide 34 mmol/L (22-30); Chloride 94 mmol/L (98-107); Estimated CRCL calculation 173 ml/min; Estimated Glomerular Filt Rate > 60; Glucose 123 mg/dL (65-110); Potassium 3.9 mmol/L (3.4-5.0); Sodium 129 mmol/L (137-145)
[2022-10-29] MEDS: PIPERACILLN/TAZ 3.375GM/NS50ML 3.375 GM/50 ML BAG IVPB (12:13)
[2022-10-29] MEDS: VANCOMYCIN 1,250 MG/NS 250 ML 1,250 MG/250 ML BAG 166.67 MG IVPB (12:17)
--- NOTE | 2022-10-29 12:18 | ED.SOB ---
HPI - SOB/Dyspnea General Chief Complaint: Shortness of Breath/Dyspnea Stated Complaint: Cough Time Seen by Provider: 10/29/22 10:52 History of Present Illness HPI Narrative: Patient is a 37-year-old male with a history of type 1 diabetes, chronic pancreatitis, polysubstance use disorder, possible cirrhosis? presenting with shortness of breath. Patient states that he has had a rather complex several last few months. States that he has been hospitalized at [facility] multiple times due to malnutrition and problems with his pancreas and liver. States that he recently had some pancreatic stents removed. States that he was discharged to a nursing facility as he is currently homeless. Today he woke up and felt very short of breath. States that he has been increasingly swollen in his legs, groin area, abdomen. States that his abdomen feels tight. He denies chest pain, headache, fevers, numbness or weakness, vomiting, dysuria, diarrhea. Related Data Allergies Allergy/AdvReac Type Severity Reaction Status Date / Time cefaclor [From Ceclor] Allergy Severe Anaphylaxis Verified 10/29/22 12:00 ciprofloxacin [From Cipro] Allergy Severe Anaphylaxis Verified 10/29/22 12:01 Review of Systems Review of Systems: All systems reviewed & are unremarkable except as noted in HPI and below PMFSH Past Medical History Medical History Anemia C. difficile diarrhea Decreased appetite Diabetes mellitus Weight loss Family History Family History Father Bladder cancer Social History Social History Smoking packs per day: 1 Smoking cigarettes per day: 20.0 Years smoked: 20 Smoking pack-years: 20.00 Smoking status: Current every day smoker Tobacco type: cigarettes Second hand tobacco smoke exposure: No Additional smoking assessment comments: Marijuana daily Alcohol intake: current Drinks per week: 3 Substance use: current Substance use type: marijuana Last use: 08/07/2022 Lack of Transportation: YES Lack of Food: Often True Current Housing: I Do Not Have Housing Concerned About Future Housing: YES Difficulty Paying Gas/Electric Bills: No Difficulty Paying for Meds: No Currently Unemployed: YES Education: Trade/Vocational Certificate Difficulty w/ Childcare or Family Care: No Spiritual care concerns: No Exam Narrative: GENERAL: Ill-appearing jaundiced young man sitting in bed in no acute distress HEAD: Normocephalic, atraumatic. EYES: PERRLA and EOMI. + scleral icterus ENT: Nares clear, no rhinorrhea or epistaxis. Mucous membranes moist. NECK: Supple. CHEST: Coarse breath sounds bilaterally, saturating upper 90s on 4 L nasal cannula HEART: Tachycardic, regular rhythm ABDOMEN: Soft, distended with positive fluid wave, no tenderness EXTREMITIES: Normal range of motion. + Bilateral lower extremity edema up to his thighs SKIN: Warm, dry, no rash. Jaundiced. Small wound on second left toe, no surrounding cellulitis or purulent drainage NEURO: No focal deficits. Alert and oriented x3. PSYCH: Normal mood and affect. Course Vital Signs Vital signs: Vital Signs Temperature 98.2 F 10/29/22 10:36 Pulse Rate 126 H 10/29/22 10:36 Respiratory Rate 16 10/29/22 10:36 Blood Pressure 102/70 10/29/22 10:36 Pulse Oximetry 84 L 10/29/22 10:36 Oxygen Delivery Room Air 10/29/22 10:36 Temperature 98.4 F 10/29/22 17:25 Pulse Rate 112 H 10/29/22 18:13 Respiratory Rate 18 10/29/22 18:13 Blood Pressure 103/72 10/29/22 18:13 Pulse Oximetry 97 10/29/22 18:13 Oxygen Delivery Nasal Cannula 10/29/22 12:30 Oxygen Flow Rate 7 10/29/22 12:30 MDM - SOB/Dyspnea MDM Narrative Medical decision making narrative: Patient is a 37-year-old male presenting with shortness of breath. He was hypoxic on room air,
[2022-10-29] MEDS: LACTATED RINGERS 1,000 ML 999 ML IV CONT (12:30)
[2022-10-29 13:02] LABS: Ammonia 29 umol/L (9-30); Lactic Acid Reflex 2.9 mmol/L (0.7-2.0)
[2022-10-29 13:03] LABS: Lipase 14 U/L (23-300); Magnesium 1.5 mg/dL (1.6-2.3)
[2022-10-29 13:04] LABS: INR 2.3; Prothrombin Time 27.3 Seconds (11.1-14.7)
[2022-10-29 13:05] LABS: Partial Thromboplastin Time 48.3 SECONDS (22.3-36.8)
[2022-10-29] MEDS: HYDROmorphone HCL INJ (*CRX) 1 MG/ML SYR 0.5 MG IV PUSH ×2 (13:11→16:11)
[2022-10-29 13:16] LABS: Troponin I < 0.012 ng/mL (0.000-0.034)
[2022-10-29 13:29] LABS: Influenza A QL RT-PCR Negative (Negative); Influenza B QL RT-PCR Negative (Negative); SARS-CoV-2 RNA PCR Negative (Negative)
[2022-10-29] MEDS: VANCOMYCIN 1,000 MG/NS 250 ML 1,000 MG/250 ML BAG 250 MG IVPB (14:04)
[2022-10-29 15:45] LABS: Appearance Urine Cloudy (Clear); Bacteria Urine None Seen /hpf; Bilirubin Urine 3+ (Negative); Blood Urine 1+ (Negative); Color Urine Dark Yellow (Yellow); Glucose Urine UA Negative (Negative); Ketones Urine Negative (Negative); Leukocyte Esterase Ur 1+ LEU/UL (Negative); Mucus Urine Present /lpf; Nitrate Urine Negative (Negative); Protein Urine Trace mg/dL (Negative); Squamous Epithelial Cell Urine Occasional /hpf (Few); WBC Urine 0-5 /hpf
[2022-10-29 15:48] LABS: Add Urine Microscopic? YES; Specific Grav Ur 1.046 (1.001-1.035)
[2022-10-29 15:51] LABS: Reflex Lactic Acid Yes or No Add Lactic
[2022-10-29] MEDS: MAGNESIUM SULF 4 GM/WATER100ML 4 GM/100 ML BAG IVPB (16:03)
[2022-10-29] MEDS: ALBUMIN HUMAN 25% 25 GM/100 ML 100 ML IVPB (16:48)
[2022-10-29 16:58] LABS: Lactic Acid 1.9 mmol/L (0.7-2.0)
== END 2022-10-29 19:16 | disposition short-term general hospital (02) ==
PROVIDERS: Emergency Provider Emergency Medicine; PCP Nurse Practitioner
DX: A41.9 Sepsis, unspecified organism (principal); R18.8 Other ascites; J81.1 Chronic pulmonary edema; E80.6 Other disorders of bilirubin metabolism; E10.9 Type 1 diabetes mellitus without complications; K86.1 Other chronic pancreatitis; K76.0 Fatty (change of) liver, not elsewhere classified; K76.6 Portal hypertension; R00.0 Tachycardia, unspecified; R94.31 Abnormal electrocardiogram [ECG] [EKG]
CPT/HCPCS: 36415; 71046; 74177; 80053; 81001; 82140; 83605; 83690; 83735; 84484; 85025; 85610; 85730; 87040; 87081; 87636; 93005; 96361; 96365; 96366; 96367; 96375; 96376; 99285; J1170; J2543; J3370; J3475; J7120; P9047; Q9967

== ENCOUNTER 2023-06-11 14:32 | Outpatient (RCR) | payer OTHER, SELFPAY ==
--- NOTE | 2023-06-11 15:27 | PTOPEVAL1 ---
Assessment and note entered by Jelani Echeverria Evaluation Information Assessment Status Evaluation Diagnosis lumbar radiculopathy Onset 06/06/23 Subjective Information Pt. reports that he was hospitalized for 3 months with double pneumonia at the end of 2022. He returned home in March of 2023. He states that he has not been very active since returning home. He reports that he has type 1 diabetes and notices some tingling in the feet. He reports that back pain has been ongoing since 2004. He reports that he has pain across the low back and into the legs. He states that he was told he has a pars defect in the lumbar area and disc bulging. He reports he has been using a cane since returning home. He reports that he has currently applied for disability, but is waiting on the [facility]. He reports that he is currently smoking a half a pack of cigarettes per day. He reports that he has trouble with tasks such has putting on socks due to inability to reach his feet. He reports that he can stand for a duration of 10 minutes before having to sit due to pain. He reports that he cannot lift anything significant due to feeling is going to fall forward and feeling too weak. He reports 1 fall in the past 1-2 months. he states that he is lacking core strength. He reports that his goal is to improve strength and balance. Reported Pain Level Pain Score 8: Self Report Assessment PT Clinical Summary Pt. is a 37 year old male who enters the clinic with lumbar radiculopathy and gait impairment. He currently presents with impaired gait, impaired l .e. and u.e. strength, impaired postural awareness , impaired balance and pain. Continued skilled PT is indicated in order to improve these areas to allow the pt. to be able to complete all IADL's with improved comfort and efficiency. Plan of Care Interventions Electrical Stimulation,Hot Pack/Cold Pack,Manual Therapy,Neuro Re-education,Patient/Caregiver Educati,Therapeutic Activities,Therapeutic Exercise PT Services Indicated Yes Treatment Frequency and 2x/week x 10 visits Duration These treatments will address the objective and functional deficits as defined above. The patient will be advanced safely and appropriately in order for the patient to progress towards his/her prior level of function. Additional exercises will be
--- NOTE | 2023-06-11 15:28 | OPREHPOC ---
Outpatient Therapy Plan of Care This is a Multidisciplinary Plan of Care that may contain components documented by all disciplines (PT, OT, and ST.) PT Problem 1 PT Problem #1 Knowledge Deficit PT Goal 1 Goal Pt. will be independent with a HEP addressing strength and endurance. Target Visit 2 PT Problem 2 PT Problem #2 Impaired Balance PT Goal 1 Goal Pt. will improve tinetti score to 22 or greater. Target Visit 10 PT Problem 3 PT Problem #3 Impaired Endurance PT Goal 1 Goal Pt. will be able to participate in standing activities for duration of 20 minutes without rest . Target Visit 10 PT Problem 4 PT Problem #4 Impaired Strength PT Goal 1 Goal Pt. will demonstrate ability to safely lift an object weight 17.5# from floor to waist with proper mechanics. Target Visit 10
--- NOTE | 2023-06-25 12:47 | PCPTNOTE ---
Pt. contacted the clinic on this date stating that he has Covid and would call to schedule once he was better. Jelani Echeverria, MPT
== END 2023-06-11 20:00 | disposition home or self-care (01) ==
LOC: CHSPT 14:32
PROVIDERS: Visit Provider Nurse Practitioner Adult Health
DX: M54.16 Radiculopathy, lumbar region (principal)
CPT/HCPCS: 97110; 97161